=== PATIENT | male | born 1940 | race Caucasian/White ===

== ENCOUNTER 2020-07-25 19:39 | Inpatient (IN) | payer MEDICARE, MEDICAID, SELFPAY ==
[2020-07-25] VITALS (9 sets, daily range): BP systolic 97–130; BP diastolic 49–73; PULSE 81–92; RESP 18–30; TEMP 37.3; O2SAT 90–100; BMI 22.2
--- NOTE | 2020-07-25 19:59 | ECG_ITS ---
APPROVED REPORT Exam: Resting ECG HR:91 bpm ECG Measurements Heart Rate 91 AXES ID 172 P 29 QRSd 80 QRS -13 QT 364 T -13 QTc 447 Conclusion Normal sinus rhythm with sinus arrhythmia Normal ECG Electronically signed by : Jose Cool, 07/26/2020 16:52:35
--- NOTE | 2020-07-25 19:59 | XR_ITS ---
PROCEDURE: XR CHEST PORTABLE CLINICAL HISTORY: cough Pulmonary fibrosis COMPARISON: No exams were available for comparison FINDINGS: Mild cardiomegaly without failure. Pulmonary fibrotic changes are present. No definite lobar consolidation or collapse.. Cannot exclude infiltrate in the lung bases as there are no previous exams available for comparison. Degenerative changes of the shoulders with severe subacromial stenosis on the right IMPRESSION: Pulmonary fibrosis with mild cardiomegaly Dictated by: Ellis Perez MD 07/25/2020 22:59 Ellis Perez MD in [place] 07/25/2020 22:59
--- NOTE | 2020-07-25 20:02 | HMH.EDWEAK ---
ED Disposition Clinical Impression: Pulmonary fibrosis, SIRS (systemic inflammatory response syndrome), Renal insufficiency, Hx of traumatic brain injury CAP (community acquired pneumonia) Qualifiers: Laterality: left Lung location: lower lobe of lung Qualified Code(s): J18.9 - Pneumonia, unspecified organism Type 2 diabetes mellitus without complication Qualifiers: Diabetes mellitus terminal manager insulin use: unspecified assisted insulin use status Qualified Code(s): E11.9 - Type 2 diabetes mellitus without complications Disposition: Admitted as Observation Condition on Discharge: Fair Instructions: DI for Altered Mental Status Referrals: Eddi Cowan MD [Primary Care Provider] - - Critical Care Critical Care Time: No Attestation: On 07/25/20, the high probability of a clinically significant, sudden or life threatening deterioration of the following system(s) required my full and direct attention, intervention and personal management. The time I documented below is in addition to time spent performing reported procedures but includes the following listed in this critical care notation. Medical Decision Making - Medical Records Medical records reviewed: Yes: I reviewed the patient's medical records. - Jim Inquiry Pt receiving controlled substance: No Vital Signs: 07/25/20 19:39 07/25/20 20:16 07/25/20 20:39 Temperature 99.2 F Temperature Source Rectal Pulse Rate [Left Radial] 84 82 84 Respiratory Rate 30 H 18 Blood Pressure [Right Arm] 117/63 97/49 L 109/56 L Blood Pressure Mean [Right Arm] 81 65 73 Blood Pressure Source [Right Arm] Automatic Cuff Blood Pressure Position [Right Arm] Supine 02 Sat by Pulse Oximetry 92 L 95 100 Oxygen Delivery Method Room Air Oxygen Flow Rate (LPM) 07/25/20 21:00 07/25/20 21:33 07/25/20 22:00 Temperature Temperature Source Pulse Rate [Left Radial] 86 87 81 Respiratory Rate 26 H 18 18 Blood Pressure [Right Arm] 116/51 L 115/54 L 110/53 L Blood Pressure Mean [Right Arm] 72 74 72 Blood Pressure Source [Right Arm] Automatic Cuff Blood Pressure Position [Right Arm] Supine 02 Sat by Pulse Oximetry 90 L 97 99 Oxygen Delivery Method Room Air Nasal Cannula Nasal Cannula Oxygen Flow Rate (LPM) 2 2 07/25/20 22:30 07/25/20 23:00 Temperature Temperature Source Pulse Rate [Left Radial] 92 H 84 Respiratory Rate 18 24 Blood Pressure [Right Arm] 130/73 106/53 L Blood Pressure Mean [Right Arm] 92 70 Blood Pressure Source [Right Arm] Automatic Cuff Blood Pressure Position [Right Arm] Supine 02 Sat by Pulse Oximetry 99 95 Oxygen Delivery Method Nasal Cannula Nasal Cannula Oxygen Flow Rate (LPM) 2 2 - Lab Data Lab results reviewed: Yes: I reviewed the patient's lab results. Lab Results 07/25/20 18:35: WBC 20.1 H*, RBC 4.35 L, Hgb 12.2 L, Hct 38.0 L, MCV 87.5, MCH 28.1, MCHC 32.1, RDW 14.4, Plt Count 425 H, MPV 7.5, Neut % (Auto) 85.7 H, Lymph % (Auto) 9.8 L, [place] % (Auto) 3.8, Eos % (Auto) 0.4, Baso % (Auto) 0.2, Neut # (Auto) 17.2 H, Lymph # (Auto) 2.0, [place] # (Auto) 0.8, Eos # (Auto) 0.1, Baso # (Auto) 0.0, Total Counted 100, Neutrophils % (Manual) 86 H, Band Neutrophils % 6.0, Lymphocytes % (Manual) 8 L, Platelet Estimate Normal, RBC Morphology Normal 07/25/20 18:35: Sodium 142, Potassium 4.4, Chloride 104, Carbon Dioxide 27, Anion Gap 15.4 H, BUN 36 H, Creatinine 1.80 H, Estimated Creat Clear 34, Estimated GFR 37 L, Est GFR ( Amer) 44 L, Glucose 128 H, Calcium 9.5, Total Bilirubin 0.5, Direct Bilirubin 0.3, Conjugated Bilirubin 0.0, Indirect Bilirubin 0.2, Unconjugated Bilirubin 0.3, AST 45, ALT 43, Alkaline Phosphatase 136 H, Total Protein 8.5 H, Albumin 3.9, Procalcitonin 0.288 07/25/20 18:35: SARS-CoV-2 IgG Ab (Rapid) Negative, SARS-CoV-2 IgM Ab (Rapid) Negative 07/25/20 18:35: Total Valproic Acid 59.5 07/25/20 19:41: Urine Color Yellow, Urine Appearance Clear, Urine pH 6.0, Ur Specific [place] >= 1.030, Urine Protein 2+, Urine Glucose
[2020-07-25 20:14] LABS: Microscopic, Urine URINE MICROSCOPIC (MICROSCOPIC)
[2020-07-25 20:17] LABS: Basophils % 0.2 % (0.1-2.0); Eosinophils # 0.1 K/mm3 (0.0-0.4); Eosinophils % 0.4 % (0.1-12.0); Hemoglobin 12.2 g/dL (14.1-18.0); Lymphocytes % 9.8 % (10-50); Mean Corpuscular HGB Conc 32.1 g/dL (31.8-35.4); Mean Corpuscular Hemoglobin 28.1 pg (27.0-31.2); Mean Corpuscular Volume 87.5 fl (80-94); Mean Platelet Volume 7.5 fl (7.4-10.4); Monocytes # 0.8 K/mm3 (0.1-1.0); Monocytes % 3.8 % (1.7-9.3); Neutrophils # 17.2 K/mm3 (1.8-7.8); Neutrophils % 85.7 % (37.0-80.0); Platelet Count 425 K/mm3 (142-424); Red Blood Count 4.35 M/mm3 (4.60-6.20); Red Cell Distribution Width 14.4 % (11.5-17.5)
--- NOTE | 2020-07-25 20:18 | PC.NURSE ---
RT AT BEDSIDE
[2020-07-25 20:24] LABS: Alanine Aminotransferase 43 U/L (12-78); Albumin Level 3.9 g/dl (3.5-5.0); Alkaline Phosphatase 136 U/L (38-126); Anion Gap 15.4 mEq/L (5-15); Aspartate Amino Transferase 45 U/L (17-59); Bilirubin,Direct 0.3 mg/dl (0.0-0.4); Bilirubin,Indirect 0.2 mg/dL (0.0-0.9); Bilirubin,Total 0.5 mg/dl (0.2-1.3); Bilirubin,Unconjugated 0.3 mg/dL (0.0-1.1); Blood Urea Nitrogen 36 mg/dl (9-20); Calcium 9.5 mg/dl (8.4-10.2); Carbon Dioxide 27 mmol/L (22.0-30.0); Chloride 104 mmol/L (98-107); Creatinine Clearance Estimated 34 mL/min (50-200); Estimated Glomerular Filt Rate 37 ml/min (>60); GFR (African American) 44 ML/MIN (>60); Glucose 128 mg/dl (74-100); Potassium 4.4 mmoL/L (3.5-5.1); Sodium 142 mmol/L (136-145); Total Protein,Serum 8.5 g/dl (6.3-8.2)
[2020-07-25 20:26] LABS: MANUAL DIFFERENTIAL MANUAL DIFFERENTIAL (MANUAL DIFF); White Blood Count 20.1 K/mm3 (4.8-10.8)
[2020-07-25 20:28] LABS: Lactic Acid 1.3 mmol/L (0.7-2.1)
[2020-07-25 20:32] LABS: Appearance,Urine CLEAR (Clear); Bilirubin,Urine Negative (Negative); Blood, Urine 2+ (Negative); Color,Urine YELLOW (Yellow); Glucose,Urine (UA) Negative (Negative); Ketones,Urine TRACE (Negative); Leukocyte Esterase,Urine Negative (Negative); Nitrate,Urine Negative (Negative); Protein,Urine 2+ (Negative); Specific Gravity, Urine >= 1.030 (1.005-1.030); Urobilinogen,Urine 0.2 EU/dl (0.2)
[2020-07-25 20:35] LABS: Squamous Epithelial Cell,Urine Occasional #/hpf (0-5)
[2020-07-25 20:37] LABS: ABG HCO3 23.3 mmhg (22.0-26.0); ABG Oxygen Saturation 97 % (90-100); ABG PCO2 40.8 mmhg (35.0-45.0); ABG PH 7.37 mmol/L (7.35-7.45); ABG PO2 100.8 mmhg (80-100); ABG TCO2 24.5 mmhg (23-27)
[2020-07-25 20:38] LABS: Allen's Test Y; Oxygen 3 %; Source R/R
[2020-07-25 20:40] LABS: Coronavirus 19 IgG Antibody Negative (Negative); Coronavirus 19 IgM Antibody Negative (Negative)
[2020-07-25 20:41] LABS: Procalcitonin 0.288 ng/mL (0.0-2.0)
[2020-07-25 20:59] LABS: Lymphocytes % 8 % (10-50); Neutrophils % 86 % (42-76); Platelet Estimate Normal; RBC Morphology Normal; Total Cells Counted 100
[2020-07-25 22:59] LABS: Valproic Acid, (Depakene) 59.5 ug/ml (50-100)
--- NOTE | 2020-07-25 23:01 | PC.NURSE ---
SPOKE WITH JACEY MENDEZ, AND WAS TOLD IT WOULD BE 11 MINS
[2020-07-26] VITALS (16 sets, daily range): BP systolic 116–173; BP diastolic 55–87; PULSE 70–110; RESP 17–24; TEMP 36.3–37.2; O2SAT 93–98; BMI 21.4; BMI 21.7
[2020-07-26 00:20] LABS: Troponin I 0.01 ng/ml (0.00-0.034)
--- NOTE | 2020-07-26 00:28 | PC.NURSE ---
PT ARRIVED TO THE FLOOR VIA STRETCHER FROM ED W/STAFF AT 0028
--- NOTE | 2020-07-26 00:41 | PC.NURSE ---
Attempted to reach to obtain photo consent, no able to leave message do to voicemail not being set up
[2020-07-26 02:24] LABS: Troponin I 0.01 ng/ml (0.00-0.034)
--- NOTE | 2020-07-26 04:30 | PC.NURSE ---
pt alert to self. diminished on lt side. pt has been agitate at intervals. 20 LAC NS @ 50. bed alarm activated
[2020-07-26 04:44] LABS: Anion Gap 13.4 mEq/L (5-15); Blood Urea Nitrogen 37 mg/dl (9-20); Carbon Dioxide 25 mmol/L (22.0-30.0); Chloride 111 mmol/L (98-107); Creatinine Clearance Estimated 37 mL/min (50-200); Estimated Glomerular Filt Rate 42 ml/min (>60); GFR (African American) 51 ML/MIN (>60); Glucose 104 mg/dl (74-100); Magnesium 1.3 mg/dl (1.6-2.3); Potassium 5.4 mmoL/L (3.5-5.1); Sodium 144 mmol/L (136-145)
[2020-07-26 04:58] LABS: Troponin I < 0.01 ng/ml (0.00-0.034)
[2020-07-26 05:00] LABS: Basophils % 0.2 % (0.1-2.0); Eosinophils # 0.2 K/mm3 (0.0-0.4); Eosinophils % 1.4 % (0.1-12.0); Hematocrit 36.2 % (42.0-52.0); Hemoglobin 11.6 g/dL (14.1-18.0); Lymphocytes # 1.8 K/mm3 (0.7-4.5); Lymphocytes % 13.2 % (10-50); Mean Corpuscular Hemoglobin 28.2 pg (27.0-31.2); Mean Corpuscular Volume 88.2 fl (80-94); Monocytes # 0.6 K/mm3 (0.1-1.0); Monocytes % 4.7 % (1.7-9.3); Neutrophils % 80.5 % (37.0-80.0); Platelet Count 267 K/mm3 (142-424); Red Blood Count 4.11 M/mm3 (4.60-6.20); Red Cell Distribution Width 14.3 % (11.5-17.5); White Blood Count 13.6 K/mm3 (4.8-10.8)
[2020-07-26 05:29] LABS: POC Glucose,Bedside 93 (70-110)
--- NOTE | 2020-07-26 10:06 | HMH.HP ---
*Admission Date: 07/26/20 *Chief complaint: sob *History of present illness: this pr was sent from [facility] for congestion and altered mental status -from [facility] - pt with dec po intake - no other hx at this time [facility] History I have reviewed the patient's past medical history: Yes Medical History: Reports:: BPH, Diabetes Mellitus Type 2, Hypertension, Seizures Denies:: Cancer, Diabetes Mellitus Type 1, Internal Pacemaker, MRSA *Have you ever received a pneumonia vaccine?: No *Have you received a flu vaccine this season?: No Other Medical History: Reports: Other Other Surgeries: No: Pacemaker Amputation: No Fractures: Yes - *Social History Smoking Status: Never smoker Alcohol Intake: never *Occupational Status:: retired Housing: [facility]dc Household Members: other *Travel in the last 8 weeks: None Family Hx:: Unable to obtain Review of Systems - Review of Systems Review of systems:: pertinent systems reviewed and negative unless documented below - *Cardiovascular Denies chest pain at rest - *Respiratory Reports cough, Reports shortness of breath - *Neurologic Reports weakness, Denies localized weakness, Denies headache(s), Denies seizure-like activity Meds Home Medications Medication Instructions Recorded Confirmed Type bisacodyl 5 mg tablet 10 mg PO BID 09/03/19 07/26/20 History cholecalciferol (vitamin D3) 100 5,000 unit PO DAILY 09/03/19 07/26/20 History mcg (4,000 unit) capsule ibuprofen 600 mg tablet 600 mg PO Q6HP PRN 09/03/19 07/26/20 History lisinopril 10 mg tablet 10 mg PO DAILY 09/03/19 07/26/20 History ondansetron HCl 4 mg tablet 4 mg PO Q8HP PRN 09/03/19 07/26/20 History sennosides 8.6 mg-docusate sodium 1 tab PO BID 09/03/19 07/26/20 History 50 mg tablet tamsulosin 0.4 mg capsule 0.4 mg PO DAILY 09/03/19 07/26/20 History metformin 500 mg tablet 500 mg PO BID 11/04/19 07/26/20 History ARIPiprazole [Abilify 10mg 10 mg PO HS 07/25/20 07/26/20 History Tablet] Aspirin [Aspirin 81mg chewable 81 mg PO DAILY 07/25/20 07/26/20 History tab] Divalproex Sodium [Depakote ER] 500 mg PO DAILY 07/25/20 07/26/20 History Donepezil HCl [Aricept 5mg 10 mg PO HS 07/25/20 07/26/20 History Tablet] Pantoprazole Sodium [Protonix 40mg 40 mg PO DAILY 07/25/20 07/26/20 History tablet] Sertraline HCl [Zoloft] 150 mg PO DAILY 07/25/20 07/26/20 History levETIRAcetam [Levetiracetam] 500 mg PO HS 07/25/20 07/26/20 History Acetaminophen 500 mg PO Q4HP PRN 07/26/20 07/26/20 History Bisacodyl [Bisacodyl 10mg Supp] 10 mg RC Q12HP PRN 07/26/20 07/26/20 History Bismuth Subsalicylate [Bismuth] 2 tab PO Q2HP PRN 07/26/20 07/26/20 History Divalproex Sodium [Depakote 250mg 750 mg PO 1700 07/26/20 07/26/20 History (Delayed-Release) tablet] Melatonin 9 mg PO HS 07/26/20 07/26/20 History Mirtazapine [Remeron 15mg tablet] 15 mg PO HS 07/26/20 07/26/20 History Multivitamin 1 each PO DAILY 07/26/20 07/26/20 History polyethylene glycoL 3350 [Miralax 17 gm PO DAILYP PRN 07/26/20 07/26/20 History 17gm Packet] Allergies Allergy/AdvReac Type Severity Reaction Status Date / Time Sulfa (Sulfonamide Allergy Verified 05/31/20 13:20 Antibiotics) Exam Vital signs and Labs for Last 24 Hours: Temp Pulse Resp BP Pulse Ox 97.8 F 101 H 20 173/87 H 98 07/26/20 08:00 07/26/20 08:00 07/26/20 08:00 07/26/20 08:00 07/26/20 08:00 Laboratory Results - last 24 hr 07/25/20 18:35: WBC 20.1 H*, RBC 4.35 L, Hgb 12.2 L, Hct 38.0 L, MCV 87.5, MCH 28.1, MCHC 32.1, RDW 14.4, Plt Count 425 H, MPV 7.5, Neut % (Auto) 85.7 H, Lymph % (Auto) 9.8 L, [place] % (Auto) 3.8, Eos % (Auto) 0.4, Baso % (Auto) 0.2, Neut # (Auto) 17.2 H, Lymph # (Auto) 2.0, [place] # (Auto) 0.8, Eos # (Auto) 0.1, Baso # (Auto) 0.0, Total Counted 100, Neutrophils % (Manual) 86 H, Band Neutrophils % 6.0, Lymphocytes % (Manual) 8 L, Platelet Estimate Normal, RBC Morphology Normal 07/25/20 18:35: Sodium 142, Potassium 4.4, Chloride 104, Carbo
--- NOTE | 2020-07-26 10:09 | CT_ITS ---
PROCEDURE: CT CHEST WO CON Referring Doctor: Eddi Cowan CLINICAL INDICATION: Short of breath. Abnormal CXR. Altered mental status. Provides no history COMPARISON: Portable chest CXR 07/25/2020 TECHNIQUE: Helical CT scanning performed through chest with no IV contrast utilized / Axial images obtained with sagittal and coronal reformats. All CT scans at the facility use one or more dose reduction, viz: automated exposure control, ma/kV adjustment per patient size (including targeted exams where dose is matched to indication, i.e. head), or iterative reconstruction technique FINDINGS: compared to yesterday's pCXR Appears to be improved aeration at left lung base and LLL as the left hemidiaphragm canal be delineated better on the CT computer help desk specialist view today. However there has been significant increased in progression right basilar/right lower lobe infiltrate which is developed and progressed since the yesterday P CXR. In addition to the diffuse left lower lobe infiltrate would note more focal denser area of infiltrate/consolidation at posterior medial periphery of the superior segment left lower lobe,. (, As seen on axial image 42-45, and sagittal image 58-53) At right lung similar but less pronounced focal infiltrate posterior aspect superior segment right lower lobe.. (Axial image 44-48 ) Also note subtle minimal infiltrate of some along with some fibrotic scarring at the anterior aspect of the left upper lobe (axial 44, sagittal 27-34) Also minimal wispy infiltrate left upper lobe (axial image 31, coronal 43, 44) PLEURAL SPACES: No significant effusion. No evidence of pneumothorax HEART: Heart mildly enlarged. Coronary calcification most evident at LAD with possible stent. Requires correlation with history. Mitral valve annulus calcification.. no significant pericardial effusion. Seems to be slight lobulated questionable mild bulging appearance at the cardiac apex. Questionable significance but you may want to consider an echocardiogram in the workup particular if there has been a previous MS . MEDIASTINAL AND HILAR STRUCTURES: Scattered small-moderate mediastinal nodes. No dominant suspicious mediastinal or hilar mass or adenopathy.. Right paratracheal node 15 mm x 10 mm 19 mm grouping of nodes precarinal region noted likely due to 2 adjacent nodes PULMONARY ARTERIES: Lack of IV contrast limits evaluation AORTA: No acute finding. No thoracic aortic aneurysm. Minimal atherosclerotic calcification aortic arch and descending aorta . BONY STRUCTURES: No acute bony abnormalities apparent.. Ankylosis and degenerative changes throughout the spine. DISH appearance noted at lower C-spine.. Kyphosis upper T-spine LYMPH NODES: No enlarged lymph nodes evident. UPPER ABDOMEN: Unremarkable. ADDITIONAL FINDINGS: No other significant abnormalities. Cholecystectomy IMPRESSION: Progression of bilateral pneumonic infiltrates -most pronounced and diffuse diffuse throughout lower lobes bilaterally.. Superimposed upon mild background chronic lung changes and mild chronic fibrotic changes When compared to yesterday's portable CXR there has been interval development and significant progression diffuse right lower lobe/right lower lobe pneumonia. Also when compared to yesterday's CXR the left basilar airspace disease has shown perhaps slight improved aeration but with more diffuse infiltrate now throughout the left lower lobe/left lung Dictated by: Ant Landin MD 07/26/2020 15:37 Ant Landin MD in [place] 07/26/2020 15:37
[2020-07-26 11:34] LABS: POC Glucose,Bedside 110 (70-110)
--- NOTE | 2020-07-26 13:59 | PC.NURSE ---
PATIENT CONTINUES TO COUGH AND CHOKE WITH SIPS AND BITES. THIS RN PHONED DR. FARRELL, ORDERS FOR NPO AND SWALLOW EVAL. PATIETN HAS BECOME MORE ALERT THIS FAR. PATIENT IS ABLE TO TELL THIS RN HIS NAME AND BIRTHDAY. NO OTHER NEW CONCERNS AT THIS TIME.
--- NOTE | 2020-07-26 14:47 | HMH.PHAVTE ---
[facility] Pharmacy VTE Monitoring - Patient Demographics Admission date: 07/26/20 Report Date: 07/26/20 Time: 14:47 Allergies/Adverse Reactions: Patient Allergies Sulfa (Sulfonamide Antibiotics) Allergy (Verified 05/31/20 13:20) Height: 1.78 m Weight: 68.765 kg Patient Problems: Current Active Problems CAP (community acquired pneumonia) (Acute) SIRS (systemic inflammatory response syndrome) (Acute) Renal insufficiency (Acute) Pulmonary fibrosis (Chronic) Type 2 diabetes mellitus without complication (Chronic) Hx of traumatic brain injury (Chronic) - VTE Risk Labs: VTE Related Lab Results Hgb 11.6 g/dL (14.1-18.0) L 07/26/20 04:15 Hct 36.2 % (42.0-52.0) L 07/26/20 04:15 Plt Count 267 K/mm3 (142-424) D 07/26/20 04:15 BUN 37 mg/dl (9-20) H 07/26/20 04:15 Creatinine 1.60 mg/dl (0.66-1.25) H 07/26/20 04:15 Estimated Creat Clear 37 mL/min (50-200) 07/26/20 04:15 VTE Score: 3 VTE Risk Level: Low Risk - Prophylaxis VTE Prophylaxis Ordered?: Yes Types of VTE Prophylaxis: TEDS Knee High Location of Applied Device: Bilateral Lower Extremeties
--- NOTE | 2020-07-26 16:04 | PC.NURSE ---
photo taken by raul irizarry rn. skin tear measures about 1in wide by 2in long. no drainage noted. surrounded by red and pink tissue.
[2020-07-26 16:20] LABS: POC Glucose,Bedside 110 (70-110)
[2020-07-27] VITALS (13 sets, daily range): BP systolic 124–145; BP diastolic 61–81; PULSE 66–92; RESP 18–30; TEMP 36.2–36.8; O2SAT 94–99; BMI 21.4
[2020-07-27 01:32] LABS: POC Glucose,Bedside 104 (70-110)
--- NOTE | 2020-07-27 05:38 | PC.NURSE ---
at this time, notified Dr Cowan, through ER nurse Ita Ellis, that starting at approx 0535 the patient has been in and out of Afib and aflutter, he will then convert spontaneously to sinus milo with a rate of 40's-50's. When in afib/aflutter rate has been controlled. Looking at patient records and medication in system, pt does not have a history of afib/aflutter nor is he on any medications for afib aflutter. No new orders or changes at this time.
[2020-07-27 05:55] LABS: POC Glucose,Bedside 78 (70-110)
[2020-07-27 06:15] LABS: Basophils % 0.2 % (0.1-2.0); Eosinophils # 0.1 K/mm3 (0.0-0.4); Eosinophils % 1.2 % (0.1-12.0); Hematocrit 34.6 % (42.0-52.0); Hemoglobin 11.2 g/dL (14.1-18.0); Lymphocytes # 1.4 K/mm3 (0.7-4.5); Lymphocytes % 11.2 % (10-50); Mean Corpuscular HGB Conc 32.4 g/dL (31.8-35.4); Mean Corpuscular Hemoglobin 28.3 pg (27.0-31.2); Mean Corpuscular Volume 87.4 fl (80-94); Mean Platelet Volume 8.3 fl (7.4-10.4); Monocytes # 0.6 K/mm3 (0.1-1.0); Neutrophils # 10.1 K/mm3 (1.8-7.8); Neutrophils % 82.5 % (37.0-80.0); Platelet Count 342 K/mm3 (142-424); Red Blood Count 3.96 M/mm3 (4.60-6.20); Red Cell Distribution Width 14.3 % (11.5-17.5); White Blood Count 12.2 K/mm3 (4.8-10.8)
[2020-07-27 06:18] LABS: Chloride 106 mmol/L (98-107)
[2020-07-27 06:19] LABS: Potassium 3.8 mmoL/L (3.5-5.1); Sodium 142 mmol/L (136-145)
[2020-07-27 06:21] LABS: Blood Urea Nitrogen 21 mg/dl (9-20); Creatinine Clearance Estimated 59 mL/min (50-200); Estimated Glomerular Filt Rate 93 ml/min (>60); GFR (African American) 113 ML/MIN (>60)
[2020-07-27 06:22] LABS: Anion Gap 13.8 mEq/L (5-15); Carbon Dioxide 26 mmol/L (22.0-30.0); Glucose 80 mg/dl (74-100)
--- NOTE | 2020-07-27 08:10 | PC.NURSE ---
Patient has rested well this shift. He was turned Q2h to prevent further skin breakdown. Pt had 1 bm at the beginning of the shift. pt is alert to self. When asked his name stated it was brittany when asked if thats what he wanted to be called , he said yes, but i dont want to be no friends! Pt has expressed frustrations at being NPO by cursing at the staff. pt lung sounds contain rhonchi in ru anterior lob. crackles remain in josie bases. bowel sounds are active in all quads. nad noted.
--- NOTE | 2020-07-27 09:12 | HMH.ACPN2 ---
Internal Medicine - PN: Subj *Date: 07/27/20 *Time: 09:12 Interval history: pt laying in bed Exam Vital signs and Labs for Last 24 Hours: Temp Pulse Resp BP Pulse Ox 98.2 F 79 22 145/81 H 97 07/27/20 08:00 07/27/20 08:00 07/27/20 08:00 07/27/20 08:00 07/27/20 08:00 Laboratory Results - last 24 hr 07/26/20 11:21: POC Glucose 110 07/26/20 16:12: POC Glucose 110 07/26/20 20:33: POC Glucose 104 07/27/20 05:25: WBC 12.2 H, RBC 3.96 L, Hgb 11.2 L, Hct 34.6 L, MCV 87.4, MCH 28.3, MCHC 32.4, RDW 14.3, Plt Count 342 D, MPV 8.3, Neut % (Auto) 82.5 H, Lymph % (Auto) 11.2, [place] % (Auto) 5.0, Eos % (Auto) 1.2, Baso % (Auto) 0.2, Neut # (Auto) 10.1 H, Lymph # (Auto) 1.4, [place] # (Auto) 0.6, Eos # (Auto) 0.1, Baso # (Auto) 0.0 07/27/20 05:25: Sodium 142, Potassium 3.8 D, Chloride 106, Carbon Dioxide 26, Anion Gap 13.8, BUN 21 H D, Creatinine 0.80 D, Estimated Creat Clear 59, Estimated GFR 93, Est GFR ( Amer) 113 D, Glucose 80, Calcium 9.0 07/27/20 05:48: POC Glucose 78 I & O for Last 24 hours: Intake & Output 07/24/20 07/25/20 07/26/20 07/27/20 11:59 11:59 11:59 11:59 Intake Total 498 / 498 0 / 0 Output Total 1300 / 1300 Balance 498 / 498 -1300 / -1300 Weight 151 lb 9.6 oz 149 lb 9 oz Microbiology Reports for the Last 24 Hours: Microbiology 07/26/20 00:01 Sputum - Expectorated Sputum Gram Stain - Final 07/26/20 00:01 Sputum - Expectorated Sputum Sputum Culture - Preliminary - Constitutional no acute distress, thin - *Routine HEENT Exam Head: Present: normocephalic Eye: Present: PERRL ENT: Present: mucous membranes moist - *Routine Neck Exam Present: supple. Absent: lymphadenopathy - *Routine Respiratory Exam Present: rhonchi, wheezes, diminished air movement - *Routine Cardiovascular Exam Present: RRR - *Routine Abdominal Exam Present: soft, normoactive bowel sounds. Absent: tenderness - *Routine Extremities Exam Present: normal capillary refill. Absent: cyanosis, clubbing, edema - *Routine Skin Exam Present: warm. Absent: rash - *Routine Neurological Exam Present: alert, oriented X3 - Routine Psychiatric Exam Present: unable to assess Assessment and Plan (1) CAP (community acquired pneumonia) Status: Acute Qualifiers: Laterality: left Lung location: lower lobe of lung Qualified Code(s): J18.9 - Pneumonia, unspecified organism Category: Medical Code(s): J18.9 - Pneumonia, unspecified organism (2) SIRS (systemic inflammatory response syndrome) Status: Acute Category: Medical Code(s): R65.10 - Systemic inflammatory response syndrome (SIRS) of non-infectious origin without acute organ dysfunction (3) Renal insufficiency Status: Acute Category: Medical Code(s): N28.9 - Disorder of kidney and ureter, unspecified (4) Pulmonary fibrosis Status: Chronic Category: Medical Code(s): J84.10 - Pulmonary fibrosis, unspecified (5) Hypomagnesemia Status: Acute Category: Medical Code(s): E83.42 - Hypomagnesemia (6) Type 2 diabetes mellitus without complication Status: Chronic Qualifiers: Diabetes mellitus penitentiary insulin use: unspecified penitentiary insulin use status Qualified Code(s): E11.9 - Type 2 diabetes mellitus without complications Category: Medical Code(s): E11.9 - Type 2 diabetes mellitus without complications (7) Dysphagia Status: Chronic Qualifiers: Dysphagia type: unspecified Qualified Code(s): R13.10 - Dysphagia, unspecified Category: Medical Code(s): R13.10 - Dysphagia, unspecified - Assessment and plan all Dx Assessment and Plan for all problems:: rounded with dr roberts all orders per dr roberts have pulm see pt speech eval for aspiration
--- NOTE | 2020-07-27 09:45 | HMH.PULMCON ---
*Admission Date: 07/26/20 *Reason for consult:: Acute hypoxic respiratory failure, pneumonia *History of present illness: Mr. Gomez is a 80-year-old male previous smoker more than [id number] smoking history currently not smoking and nebulization therapy nocturnally every day not on any home oxygen presented to the hospital with worsening respiratory failure and decreased p.o. intake. Imaging showed bilateral pulmonary infiltrates and pulmonary was called for further management. [facility] History Medical History: Reports:: BPH, Diabetes Mellitus Type 2, Hypertension, Seizures Denies:: Cancer, Diabetes Mellitus Type 1, Internal Pacemaker, MRSA *Have you ever received a pneumonia vaccine?: No *Have you received a flu vaccine this season?: No Other Medical History: Reports: Other Other Surgeries: No: Pacemaker Amputation: No Fractures: Yes - *Social History Smoking Status: Never smoker Alcohol Intake: never *Occupational Status:: retired Housing: care home Household Members: other *Travel in the last 8 weeks: None Family Hx:: Unable to obtain ROS - Cons Reports anorexia, Reports body ache(s), Reports chills - ENT Reports abnormal hearing - Card Reports shortness of breath, Reports shortness of breath with activity - Resp Respiratory: Yes chest congestion, Yes cough, Yes excessive phlegm production - GI Gastrointestingal: Reports: system reviewed and no additional complaints, except as docu - [place] Musculoskeletal: Reports system reviewed and no additional complaints, except as docu Meds Home Medications Medication Instructions Recorded Confirmed Type bisacodyl 5 mg tablet 10 mg PO BID 09/03/19 07/26/20 History cholecalciferol (vitamin D3) 100 5,000 unit PO DAILY 09/03/19 07/26/20 History mcg (4,000 unit) capsule ibuprofen 600 mg tablet 600 mg PO Q6HP PRN 09/03/19 07/26/20 History lisinopril 10 mg tablet 10 mg PO DAILY 09/03/19 07/26/20 History ondansetron HCl 4 mg tablet 4 mg PO Q8HP PRN 09/03/19 07/26/20 History sennosides 8.6 mg-docusate sodium 1 tab PO BID 09/03/19 07/26/20 History 50 mg tablet tamsulosin 0.4 mg capsule 0.4 mg PO DAILY 09/03/19 07/26/20 History metformin 500 mg tablet 500 mg PO BID 11/04/19 07/26/20 History ARIPiprazole [Abilify 10mg 10 mg PO HS 07/25/20 07/26/20 History Tablet] Aspirin [Aspirin 81mg chewable 81 mg PO DAILY 07/25/20 07/26/20 History tab] Divalproex Sodium [Depakote ER] 500 mg PO DAILY 07/25/20 07/26/20 History Donepezil HCl [Aricept 5mg 10 mg PO HS 07/25/20 07/26/20 History Tablet] Pantoprazole Sodium [Protonix 40mg 40 mg PO DAILY 07/25/20 07/26/20 History tablet] Sertraline HCl [Zoloft] 150 mg PO DAILY 07/25/20 07/26/20 History levETIRAcetam [Levetiracetam] 500 mg PO HS 07/25/20 07/26/20 History Acetaminophen 500 mg PO Q4HP PRN 07/26/20 07/26/20 History Bisacodyl [Bisacodyl 10mg Supp] 10 mg RC Q12HP PRN 07/26/20 07/26/20 History Bismuth Subsalicylate [Bismuth] 2 tab PO Q2HP PRN 07/26/20 07/26/20 History Divalproex Sodium [Depakote 250mg 750 mg PO 1700 07/26/20 07/26/20 History (Delayed-Release) tablet] Melatonin 9 mg PO HS 07/26/20 07/26/20 History Mirtazapine [Remeron 15mg tablet] 15 mg PO HS 07/26/20 07/26/20 History Multivitamin 1 each PO DAILY 07/26/20 07/26/20 History polyethylene glycoL 3350 [Miralax 17 gm PO DAILYP PRN 07/26/20 07/26/20 History 17gm Packet] Allergies Allergy/AdvReac Type Severity Reaction Status Date / Time Sulfa (Sulfonamide Allergy Verified 05/31/20 13:20 Antibiotics) Exam Radiology reports for Last 24 Hours: CT chest on admission bilateral pulmonary less prominently lower lobes with chronic changes likely from recurrent aspiration pneumonia. However underlying interstitial lung disease cannot be completely ruled out - Constitutional Constitutional:: comfortable - HENME Exam HENME: normocephalic, atraumatic - Eye Exam Eyes:: normal appearance both eyes and related struc
--- NOTE | 2020-07-27 10:55 | HMH.SLDYSPHA ---
Speech & Language Evaluation Speech/Language Dysphagia Evaluation Start: 07/27/20 10:48 Freq: ONCE Status: Active Protocol: Document 07/27/20 10:48 [email or web address] (Rec: 07/27/20 10:55 [email or web address] [id number]) Dysphagia Assess/Goals/Plan Assessment Date of Evaluation: 07/27/20 Evaluation Type Initial Certification Assessment/Problems dysphagia Does Patient Qualify for Service No Qualify/Failure Comment Diet modifications made. Patient unable to follow simple directions due to AMS. Recommendations PHYSICIAN CERTIFICATION: The specified therapy services are required, authorized, and reviewed every 30 days. Diet Recommendations Mechanical Soft Liquid Type Recommendations [place] Consistency SL Swallow Guidelines Assist w/all meals,Standard Aspiration Prec. Dysphagia Swallow Precautions/Strategies Sitting Upright (90 deg),Small Bites and Sips,Alternate Liquids/Solids Plan Pt/Guardian verbally ack understanding Yes: RN and CM notified of dx/prognosis/goals G -code Required No General Information General Current Food Consistancy NPO Dentition Good Dentition Oxygen Status Nasal Cannula Facial Symmetry Symmetrical Patient Orientation Person,Place Ability to Follow Directions Fair Dysphagia:Food Presentation Evaluation Food Type Pureed,Mechanical Soft,Liquid, Pudding Normal/Thin Liquid Response Multiple swallow attempts, Coughing after swallow,Wet voice,Excessive saliva/mucous Dysphagia Evaluation Summary Mr. Gomez was given the following consistencies: thins via spoon, nectar via spoon and open cup, pudding, pureed, and mechanical soft. The following signs of dysphagia were noted during evaluation: multiple (hard) swallows per bolus, coughing after the swallow, excessive saliva all with thins. He required suctioning after thins. At this time, the least restrictive diet is a mechanical soft diet with ground meats with sauce/gravy with nectar thick liquids. Due to altered mental status, it makes th
[2020-07-27 11:23] LABS: POC Glucose,Bedside 81 (70-110)
--- NOTE | 2020-07-27 11:32 | SW/DCPLANNER ---
Addendum entered by Jacquelyn Marcano 07/31/20 12:37: NEGATIVE COVID results and discharge summary has been faxed to [facility]. Patient will discharge later today. Addendum entered by aJcquelyn Marcano 07/31/20 10:18: Melania from [facility] has stated that she can accept this patient back today with IV Vanc and IV meropenem and PEG tube once he has a negative COVID result. COVID test has been ordered. I will follow up with Melania once COVID results are back. Patient will discharge later today. Addendum entered by Jacquelyn Marcano 07/30/20 11:01: I have spoke with Melania from [facility] regarding patients status: PEG tube placement yesterday and will see how he tolerates feedings today, I have explained the need for IV antibiotics and stated that patient could return with either Zyvox PO or VANC IV and Melania has stated that she will call me back regarding this options, Melania has stated a PICC line is fine and I have also informed Melania that this patient is ESBL/MRSA positive. Melania will call me back regarding IV vs PO medications. I have also informed Melania depending on how patient tolerates tubefeedings he may be able for discharge tomorrow. Addendum entered by Jacquelyn Marcano 07/28/20 09:52: Updated patient information has been faxed to Melania at [facility]. Patient is not ready for discharge at this time. Addendum entered by Jacquelyn Marcano 07/27/20 14:13: Melania from [facility] has stated that this patient will need a new prior auth prior to returning to [facility]. I have informed Melania that patient is currently not ready for discharge at this time. Addendum entered by Jacquelyn Marcano 07/27/20 11:42: Updated patient information has been faxed to Melania at [facility]. Original Note: This patient currently resides at [facility]. I have spoke with Melania at [facility] regarding this patient and she has stated that patient is SNF level of care. I will continue to follow up with Melania until patient is medically stable for discharge.
--- NOTE | 2020-07-27 14:13 | HMH.PHACONS ---
- Pharmacy Consult Date: 07/27/20 Time: 14:13 Referring provider: DR. ALEMAN Reason for Consult:: BASED ON PATIENT FACTORS, RECOMMEND INITIATING VANCOMYCIN AT 1,250MG IV EVERY 18 HOURS. PHARMACY WILL MONITOR AND ADJUST DOSE APPROPRIATE. -YANY COTO PHARMD Allergies and ADEs:: Allergies Allergy/AdvReac Type Severity Reaction Status Date / Time Sulfa (Sulfonamide Allergy Verified 05/31/20 13:20 Antibiotics) Home Medications:: Home Medications Medication Instructions Recorded Confirmed Type bisacodyl 5 mg tablet 10 mg PO BID 09/03/19 07/26/20 History cholecalciferol (vitamin D3) 100 5,000 unit PO DAILY 09/03/19 07/26/20 History mcg (4,000 unit) capsule ibuprofen 600 mg tablet 600 mg PO Q6HP PRN 09/03/19 07/26/20 History lisinopril 10 mg tablet 10 mg PO DAILY 09/03/19 07/26/20 History ondansetron HCl 4 mg tablet 4 mg PO Q8HP PRN 09/03/19 07/26/20 History sennosides 8.6 mg-docusate sodium 1 tab PO BID 09/03/19 07/26/20 History 50 mg tablet tamsulosin 0.4 mg capsule 0.4 mg PO DAILY 09/03/19 07/26/20 History metformin 500 mg tablet 500 mg PO BID 11/04/19 07/26/20 History ARIPiprazole [Abilify 10mg 10 mg PO HS 07/25/20 07/26/20 History Tablet] Aspirin [Aspirin 81mg chewable 81 mg PO DAILY 07/25/20 07/26/20 History tab] Divalproex Sodium [Depakote ER] 500 mg PO DAILY 07/25/20 07/26/20 History Donepezil HCl [Aricept 5mg 10 mg PO HS 07/25/20 07/26/20 History Tablet] Pantoprazole Sodium [Protonix 40mg 40 mg PO DAILY 07/25/20 07/26/20 History tablet] Sertraline HCl [Zoloft] 150 mg PO DAILY 07/25/20 07/26/20 History levETIRAcetam [Levetiracetam] 500 mg PO HS 07/25/20 07/26/20 History Acetaminophen 500 mg PO Q4HP PRN 07/26/20 07/26/20 History Bisacodyl [Bisacodyl 10mg Supp] 10 mg RC Q12HP PRN 07/26/20 07/26/20 History Bismuth Subsalicylate [Bismuth] 2 tab PO Q2HP PRN 07/26/20 07/26/20 History Divalproex Sodium [Depakote 250mg 750 mg PO 1700 07/26/20 07/26/20 History (Delayed-Release) tablet] Melatonin 9 mg PO HS 07/26/20 07/26/20 History Mirtazapine [Remeron 15mg tablet] 15 mg PO HS 07/26/20 07/26/20 History Multivitamin 1 each PO DAILY 07/26/20 07/26/20 History polyethylene glycoL 3350 [Miralax 17 gm PO DAILYP PRN 07/26/20 07/26/20 History 17gm Packet] Height: 1.78 m Weight: 67.84 kg Laboratory Results:: Laboratory Results - last 24 hr 07/26/20 16:12: POC Glucose 110 07/26/20 20:33: POC Glucose 104 07/27/20 05:25: WBC 12.2 H, RBC 3.96 L, Hgb 11.2 L, Hct 34.6 L, MCV 87.4, MCH 28.3, MCHC 32.4, RDW 14.3, Plt Count 342 D, MPV 8.3, Neut % (Auto) 82.5 H, Lymph % (Auto) 11.2, [place] % (Auto) 5.0, Eos % (Auto) 1.2, Baso % (Auto) 0.2, Neut # (Auto) 10.1 H, Lymph # (Auto) 1.4, [place] # (Auto) 0.6, Eos # (Auto) 0.1, Baso # (Auto) 0.0 07/27/20 05:25: Sodium 142, Potassium 3.8 D, Chloride 106, Carbon Dioxide 26, Anion Gap 13.8, BUN 21 H D, Creatinine 0.80 D, Estimated Creat Clear 59, Estimated GFR 93, Est GFR ( Amer) 113 D, Glucose 80, Calcium 9.0 07/27/20 05:48: POC Glucose 78 07/27/20 11:13: POC Glucose 81 Medical History: Reports:: BPH, Diabetes Mellitus Type 2, Hypertension, Seizures Denies:: Cancer, Diabetes Mellitus Type 1, Internal Pacemaker, MRSA Assessment and Plan (1) CAP (community acquired pneumonia) Status: Acute Qualifiers: Laterality: left Lung location: lower lobe of lung Qualified Code(s): J18.9 - Pneumonia, unspecified organism Category: Medical Code(s): J18.9 - Pneumonia, unspecified organism (2) SIRS (systemic inflammatory response syndrome) Status: Acute Category: Medical Code(s): R65.10 - Systemic inflammatory response syndrome (SIRS) of non-infectious origin without acute organ dysfunction (3) Renal insufficiency Status: Acute Category: Medical Code(s): N28.9 - Disorder of kidney and ureter, unspecified (4) Pulmonary fibrosis Status: Chronic Category: Medical Code(s): J84.10 - Pulmonary fibrosis, unspecified
[2020-07-27 16:27] LABS: POC Glucose,Bedside 129 (70-110)
--- NOTE | 2020-07-27 18:10 | PC.NURSE ---
Addendum entered by Ita Cadena RN 07/27/20 18:59: Correction: patient on nectar thick liquid diet Original Note: Patient is resting comfortably in bed. Has been pleasant for the majority of the day. Is alert to person and is aware that he is in a healthcare facility but is unsure of which hospital, city, month and year. Patient animal nutrition teacher are equal, ronchi noted in lung quadrants, remains on room air with nebulizer treatments added to plan of care.. Patients diet was advanced today from npo to pudding thick liquids, patient is reluctant to drink or eat anything on his diet, had a bowel movement today. Patients blood glucose levels were within range today. Mike catheter in place, urine output is adequate. Patient has been a q2 turn. Decubitus ulcer stage 1 noted on saccrum, mepelex applied. Patients called for update today and stated she would be in tomorrow to visit with . He continues on antibiotic therapy. No issues or concerns.
[2020-07-27 20:41] LABS: POC Glucose,Bedside 106 (70-110)
[2020-07-28] VITALS (10 sets, daily range): BP systolic 121–148; BP diastolic 59–74; PULSE 60–91; RESP 16–20; TEMP 36.5–36.9; O2SAT 92–98; BMI 21.5
--- NOTE | 2020-07-28 03:50 | PC.NURSE ---
No acute changes this shift. Pt is alert to self. Thinks he is in a hotel. Has slept at intervals this shift. Remains on O2 2L NC. Rhonchi noted to anterior upper lobes. Pt has productive cough. Oral Suctioning x1 this shift. VS remain stable. Remains on 2L NC. F/C draining to bedside with clear, yellow urine. Small BM this shift. Pt turned/repositioned. Mediccations per mar. Call light within reach. Safety measures in place.
[2020-07-28 06:06] LABS: Chloride 106 mmol/L (98-107); Potassium 3.8 mmoL/L (3.5-5.1); Sodium 142 mmol/L (136-145)
[2020-07-28 06:07] LABS: Basophils % 0.3 % (0.1-2.0); Eosinophils # 0.2 K/mm3 (0.0-0.4); Hematocrit 31.9 % (42.0-52.0); Hemoglobin 10.6 g/dL (14.1-18.0); Lymphocytes # 1.3 K/mm3 (0.7-4.5); Lymphocytes % 11.5 % (10-50); Mean Corpuscular HGB Conc 33.2 g/dL (31.8-35.4); Mean Corpuscular Hemoglobin 28.6 pg (27.0-31.2); Mean Platelet Volume 8.1 fl (7.4-10.4); Monocytes # 0.6 K/mm3 (0.1-1.0); Monocytes % 5.2 % (1.7-9.3); Neutrophils # 9.3 K/mm3 (1.8-7.8); Neutrophils % 81.1 % (37.0-80.0); Platelet Count 339 K/mm3 (142-424); Red Blood Count 3.71 M/mm3 (4.60-6.20); Red Cell Distribution Width 14.4 % (11.5-17.5); White Blood Count 11.4 K/mm3 (4.8-10.8)
[2020-07-28 06:09] LABS: Anion Gap 11.8 mEq/L (5-15); Blood Urea Nitrogen 15 mg/dl (9-20); Calcium 8.6 mg/dl (8.4-10.2); Carbon Dioxide 28 mmol/L (22.0-30.0); Creatinine Clearance Estimated 59 mL/min (50-200); Estimated Glomerular Filt Rate 109 ml/min (>60); GFR (African American) 132 ML/MIN (>60); Glucose 88 mg/dl (74-100)
[2020-07-28 06:14] LABS: POC Glucose,Bedside 80 (70-110)
--- NOTE | 2020-07-28 09:22 | HMH.ACPN2 ---
Internal Medicine - PN: Subj *Date: 07/28/20 *Time: 12:46 Interval history: 80 YOM sitting up in bed, no resp distress noted. Oxygen sturation 97% on 2L per NC. Sputum CX w/ ESBL E-Coli Pulmonology has seen and Rec: Plan: -Aspiration precautions, follow with barium swallow -Change cefepime to meropenem to cover ESBL E. coli -continue meropenem for a total of 7 days starting today -Continue azithromycin for a total of 5 days -Discontinue vancomycin - F/U nasal MRSA PCR -DuoNebs q.8 hrs scheduled along with every 6 schedule for shortness of breath or wheezing -Work-up for possible interstitial lung disease as an outpatient Exam Vital signs and Labs for Last 24 Hours: Temp Pulse Resp BP Pulse Ox 98.1 F 84 18 133/74 97 07/28/20 07:39 07/28/20 07:39 07/28/20 08:00 07/28/20 07:39 07/28/20 08:00 Laboratory Results - last 24 hr 07/27/20 11:13: POC Glucose 81 07/27/20 16:13: POC Glucose 129 H 07/27/20 20:33: POC Glucose 106 07/28/20 05:25: WBC 11.4 H, RBC 3.71 L, Hgb 10.6 L, Hct 31.9 L, MCV 86.0, MCH 28.6, MCHC 33.2, RDW 14.4, Plt Count 339, MPV 8.1, Neut % (Auto) 81.1 H, Lymph % (Auto) 11.5, [place] % (Auto) 5.2, Eos % (Auto) 2.0, Baso % (Auto) 0.3, Neut # (Auto) 9.3 H, Lymph # (Auto) 1.3, [place] # (Auto) 0.6, Eos # (Auto) 0.2, Baso # (Auto) 0.0 07/28/20 05:25: Sodium 142, Potassium 3.8, Chloride 106, Carbon Dioxide 28, Anion Gap 11.8, BUN 15 D, Creatinine 0.70, Estimated Creat Clear 59, Estimated GFR 109, Est GFR ( Amer) 132, Glucose 88, Calcium 8.6 07/28/20 06:02: POC Glucose 80 I & O for Last 24 hours: Intake & Output 07/25/20 07/26/20 07/27/20 07/28/20 23:59 23:59 23:59 23:59 Intake Total 498 / 498 2426 / 2426 Output Total 2450 / 2450 700 / 700 Balance 498 / 498 -24 / -24 -700 / -700 Weight 155 lb 151 lb 9.6 oz 149 lb 14.629 oz 150 lb 5 oz Microbiology Reports for the Last 24 Hours: Microbiology 07/26/20 00:01 Sputum - Expectorated Sputum Gram Stain - Final 07/26/20 00:01 Sputum - Expectorated Sputum Sputum Culture - Preliminary Escherichia coli 07/25/20 19:44 Blood Blood Culture - Preliminary NO GROWTH AFTER 48 HOURS 07/25/20 19:44 Blood Blood Culture - Preliminary NO GROWTH AFTER 48 HOURS - Constitutional no acute distress, chronically ill appearing - *Routine HEENT Exam Head: Present: normocephalic ENT: Present: mucous membranes dry - *Routine Neck Exam Present: trachea midline. Absent: JVD, tracheal deviation - *Routine Respiratory Exam Present: rhonchi - *Routine Cardiovascular Exam Present: RRR - *Routine Abdominal Exam Present: soft, normoactive bowel sounds. Absent: tenderness, firm - *Routine Extremities Exam Present: pulses intact. Absent: edema, calf tenderness - *Routine Skin Exam Present: intact, warm. Absent: jaundice - *Routine Neurological Exam Present: altered mental status - Routine Psychiatric Exam Present: unable to assess Assessment and Plan (1) CAP (community acquired pneumonia) Status: Acute Qualifiers: Laterality: left Lung location: lower lobe of lung Qualified Code(s): J18.9 - Pneumonia, unspecified organism Category: Medical Code(s): J18.9 - Pneumonia, unspecified organism (2) SIRS (systemic inflammatory response syndrome) Status: Acute Category: Medical Code(s): R65.10 - Systemic inflammatory response syndrome (SIRS) of non-infectious origin without acute organ dysfunction (3) Renal insufficiency Status: Acute Category: Medical Code(s): N28.9 - Disorder of kidney and ureter, unspecified (4) Pulmonary fibrosis Status: Chronic Category: Medical Code(s): J84.10 - Pulmonary fibrosis, unspecified (5) Hypomagnesemia Status: Acute Category: Medical Code(s): E83.42 - Hypomagnesemia (6) Type 2 diabetes mellitus without complication Status: Chronic Qualifiers: [place]
--- NOTE | 2020-07-28 09:58 | HMH.PULMPN ---
Internal Medicine - PN: Subj *Date: 07/28/20 *Time: 09:58 Interval history: No acute respiratory events overnight Exam - Constitutional Constitutional:: no acute distress - HENMT Exam HENMT: normocephalic, atraumatic - Eye Exam Eyes:: normal appearance both eyes and related structures - Neck Exam Neck:: thyroid normal, no lymphadenopathy - Respiratory Exam Comments: Bilateral coarse breath sounds especially in the lower lobes - Cardiovascular Exam Cardiac:: S1, S2 - GI Exam GI:: soft, no hepatosplenomegaly - Neurological Exam Neurological: alert, awake - Extremities Exam Extremities: no cyanosis, no clubbing, no edema - Psychiatric Exam Psychiatric: normal affect Assessment and Plan (1) CAP (community acquired pneumonia) Status: Acute Qualifiers: Laterality: left Lung location: lower lobe of lung Qualified Code(s): J18.9 - Pneumonia, unspecified organism Category: Medical Code(s): J18.9 - Pneumonia, unspecified organism (2) SIRS (systemic inflammatory response syndrome) Status: Acute Category: Medical Code(s): R65.10 - Systemic inflammatory response syndrome (SIRS) of non-infectious origin without acute organ dysfunction (3) Renal insufficiency Status: Acute Category: Medical Code(s): N28.9 - Disorder of kidney and ureter, unspecified (4) Pulmonary fibrosis Status: Chronic Category: Medical Code(s): J84.10 - Pulmonary fibrosis, unspecified (5) Hypomagnesemia Status: Acute Category: Medical Code(s): E83.42 - Hypomagnesemia (6) Type 2 diabetes mellitus without complication Status: Chronic Qualifiers: Diabetes mellitus fci insulin use: unspecified fci insulin use status Qualified Code(s): E11.9 - Type 2 diabetes mellitus without complications Category: Medical Code(s): E11.9 - Type 2 diabetes mellitus without complications (7) Dysphagia Status: Chronic Qualifiers: Dysphagia type: unspecified Qualified Code(s): R13.10 - Dysphagia, unspecified Category: Medical Code(s): R13.10 - Dysphagia, unspecified - Assessment and plan all Dx Assessment and Plan for all problems:: #Healthcare associated pneumonia: #Aspiration pneumonia 80-year-old senior living male previous smoker, using nebulization treatments every night, not on any oxygen ecently hospitalized and stayed for more than 2 days as per the patient presented to the hospital decreased p.o. intake and CT chest showed bilateral lower lobe pulmonary infiltrates consistent with aspiration pneumonia. Renal function stable. COVID-19 serology and PCR negative. Blood cultures pending. Patient was initially started on levofloxacin clindamycin however concern for healthcare acid pneumonia escalated to vancomycin and cefepime along with azithromycin, sputum cultures eventually grew ESBL E. coli and his cefepime was changed to meropenem Interval update: Sputum culture grew ESBL E. coli, antibiotics changed from cefepime to meropenem. No acute respiratory distress overnight. Patient does not appear to be in respiratory distress, bilateral coarse breath sounds on the lower lobes. Awaiting barium swallow evaluation Plan: -Aspiration precautions, follow with barium swallow -Change cefepime to meropenem to cover ESBL E. coli -continue meropenem for a total of 7 days starting today -Continue azithromycin for a total of 5 days -Discontinue vancomycin - F/U nasal MRSA PCR -DuoNebs q.8 hrs scheduled along with every 6 schedule for shortness of breath or wheezing -Work-up for possible interstitial lung disease as an outpatient #Thank you for involving pulmonary in this patient care. We will continue to follow.
[2020-07-28 10:36] LABS: POC Glucose,Bedside 86 (70-110)
--- NOTE | 2020-07-28 15:05 | HMH.SLMBS2 ---
Speech & Language Evaluation Speech/Language Mod Barium Swallow Start: 07/28/20 09:20 Freq: ONCE Status: Complete Protocol: Document 07/28/20 14:28 BLANCO (Rec: 07/28/20 15:05 BLANCO [id number]) General Information General Current Food Consistancy NPO Dentition Good Dentition Oxygen Status Room Air Facial Symmetry Symmetrical Patient Orientation Person,Place,Time Ability to Follow Directions Excellent Communication Ability Mild Impairment MBS Recommendations Diet Dietary Recommendations NPO Referrals/Other Recommended Referrals Alternate Feeding Method Mod Barium Swallow Impressions Summary and Impressions Oral Phase Impression No Impairment (WFL) Oral Phase Summary Mr. Gomez was given the following consistencies: thins via straw and open cup, nectar via straw and open cup, honey via spoon, straw, and open cup, pudding, and pureed. Pharyngeal Phase Impression Severe Impairment Pharyngeal Phase Summary Mr. Gomez exhibited the following signs of dysphagia: penetration to the vocal folds with all consistencies with aspiration of thins, nectar, pudding, and pureed. At this time, it is recommended that Mr. Gomez remain NPO and discuss alternate feeding method with family. He is at high risk for aspirating on all consistencies. Speech/Language MBS Assessment/Goals/Plan Assessment Date of Evaluation: 07/28/20 Evaluation Type Re-Evaluation/Revise POC Assessment/Problems Dysphagia Does Patient Qualify for Service No Qualify/Failure Comment Mr. Gomez is unable to follow basic directions at this time on command. Recommendations PHYSICIAN CERTIFICATION: The specified therapy services are required, authorized, and reviewed every 30 days. SL Swallow Guidelines High aspiration risk Plan Pt/Guardian verbally ack understanding Yes: RN and CM notified of dx/prognosis/goals G -code Required No Mod Barium Swallow Setup Exam Setup Radiologist Ellis Perez Level of Consciousness Awake,Alert Position (degrees) 90 Mod Barium Swallow-Lat View Textures Lateral View Food Presentation Thin Liquid via Cup,Thin Liquid via Straw,[place] Liquid
[2020-07-28 16:58] LABS: POC Glucose,Bedside 66 (70-110)
--- NOTE | 2020-07-28 17:48 | PC.NURSE ---
Currently resting in bed. Has been weaned of O2 this shift, w/ no s/s of resp distress. Lung sounds remain coarse w/ ronchi throughout. Pt has been suctioned as well as Q2h oral care performed. Pt does have an occasional cough, sputum is thick and white/yellow in color. Placed in contact precautions for sputum culture being ESBL positive. Abdomen soft, non-tender w/ active BS in all quads, no BM this shift. Pt has a stage II ulcer to coccyx, area cleaned pat dry and dressing changed this shift. Received bed bath and linen change this shift. Pt is a total care and requires turning and repositioning Q2H. Safety in place for pt safety. Call susana w/in reach.
--- NOTE | 2020-07-28 20:50 | PC.NURSE ---
Spoke with MD Leary about pt NPO status and PO medication. Change PO Protonix 40 mg to IV. Hold other medication tonight.
[2020-07-28 21:03] LABS: POC Glucose,Bedside 85 (70-110)
[2020-07-29] VITALS (23 sets, daily range): BP systolic 125–167; BP diastolic 60–98; PULSE 60–93; RESP 14–24; TEMP 36.5–37; O2SAT 93–98; BMI 21.7
[2020-07-29 05:55] LABS: POC Glucose,Bedside 84 (70-110)
--- NOTE | 2020-07-29 06:02 | PC.NURSE ---
No acute changes noted. Pt has remained NPO. Oral care provided. He has remained on RA. O2 sats 92-94%. Lungs diminished t/o. Has productive cough. Oral suctioning administered this shift. VSS. NSR to Sinus Tejinder on telemetry. F/C draining to bedside with clear, yellow urine. Medications administered per nov. PO medications held last night per MD. Call light within reach. Safety measures in place. Will continue to monitor.
[2020-07-29 06:12] LABS: Chloride 103 mmol/L (98-107); Potassium 3.4 mmoL/L (3.5-5.1); Sodium 140 mmol/L (136-145)
[2020-07-29 06:14] LABS: Blood Urea Nitrogen 12 mg/dl (9-20)
[2020-07-29 06:15] LABS: Anion Gap 12.4 mEq/L (5-15); Calcium 8.7 mg/dl (8.4-10.2); Carbon Dioxide 28 mmol/L (22.0-30.0); Creatinine Clearance Estimated 59 mL/min (50-200); Estimated Glomerular Filt Rate 93 ml/min (>60); GFR (African American) 113 ML/MIN (>60); Glucose 90 mg/dl (74-100)
[2020-07-29 07:00] LABS: Basophils % 0.4 % (0.1-2.0); Eosinophils # 0.3 K/mm3 (0.0-0.4); Hematocrit 32.8 % (42.0-52.0); Hemoglobin 10.1 g/dL (14.1-18.0); Lymphocytes # 1.3 K/mm3 (0.7-4.5); Lymphocytes % 14.4 % (10-50); Mean Corpuscular HGB Conc 30.7 g/dL (31.8-35.4); Mean Corpuscular Hemoglobin 26.8 pg (27.0-31.2); Mean Corpuscular Volume 87.3 fl (80-94); Mean Platelet Volume 7.7 fl (7.4-10.4); Monocytes # 0.5 K/mm3 (0.1-1.0); Monocytes % 5.6 % (1.7-9.3); Neutrophils % 76.6 % (37.0-80.0); Platelet Count 339 K/mm3 (142-424); Red Blood Count 3.75 M/mm3 (4.60-6.20); Red Cell Distribution Width 13.9 % (11.5-17.5); White Blood Count 9.2 K/mm3 (4.8-10.8)
--- NOTE | 2020-07-29 09:17 | HMH.ACPN2 ---
Internal Medicine - PN: Subj *Date: 07/29/20 *Time: 12:17 Interval history: 80-year-old male patient resting in bed, he is more alert today and is oriented to name and realizes he is in the hospital. He did fail his swallowing eval tomorrow discussed with options of regular diet with hospice versus n.p.o. NG tube. responds that she opts for G-tube placement, and procedure discussed with patient. Consult placed to general surgery for G-tube placement. Sputum culture grew ESBL E. coli, will continue meropenem for 7 days and azithromycin for 5 days. Exam Vital signs and Labs for Last 24 Hours: Temp Pulse Resp BP Pulse Ox 97.7 F 93 H 18 139/71 95 07/29/20 08:00 07/29/20 08:00 07/29/20 08:00 07/29/20 08:00 07/29/20 08:00 Laboratory Results - last 24 hr 07/28/20 10:29: POC Glucose 86 07/28/20 16:51: POC Glucose 66 L 07/28/20 20:50: POC Glucose 85 07/29/20 05:26: POC Glucose 84 07/29/20 05:32: WBC 9.2, RBC 3.75 L, Hgb 10.1 L, Hct 32.8 L, MCV 87.3, MCH 26.8 L, MCHC 30.7 L, RDW 13.9, Plt Count 339, MPV 7.7, Neut % (Auto) 76.6, Lymph % (Auto) 14.4, [place] % (Auto) 5.6, Eos % (Auto) 3.0, Baso % (Auto) 0.4, Neut # (Auto) 7.0, Lymph # (Auto) 1.3, [place] # (Auto) 0.5, Eos # (Auto) 0.3, Baso # (Auto) 0.0 07/29/20 05:32: Sodium 140, Potassium 3.4 L, Chloride 103, Carbon Dioxide 28, Anion Gap 12.4, BUN 12, Creatinine 0.80, Estimated Creat Clear 59, Estimated GFR 93, Est GFR ( Amer) 113, Glucose 90, Calcium 8.7 I & O for Last 24 hours: Intake & Output 07/26/20 07/27/20 07/28/20 07/29/20 23:59 23:59 23:59 23:59 Intake Total 498 / 498 2426 / 2426 890 / 890 0 / 0 Output Total 2450 / 2450 1275 / 1275 300 / 300 Balance 498 / 498 -24 / -24 -385 / -385 -300 / -300 Weight 151 lb 9.6 oz 149 lb 14.629 oz 150 lb 5 oz 152 lb 3 oz Microbiology Reports for the Last 24 Hours: Microbiology 07/26/20 00:01 Sputum - Expectorated Sputum Gram Stain - Final 07/26/20 00:01 Sputum - Expectorated Sputum Sputum Culture - Preliminary Escherichia coli Staphylococcus aureus - Constitutional no acute distress - *Routine HEENT Exam Head: Present: normocephalic ENT: Present: mucous membranes dry - *Routine Neck Exam Present: full ROM, trachea midline. Absent: JVD, tracheal deviation - *Routine Respiratory Exam Present: rhonchi. Absent: accessory muscle use - *Routine Cardiovascular Exam Present: RRR - *Routine Abdominal Exam Present: soft, normoactive bowel sounds. Absent: tenderness, firm - *Routine Extremities Exam Present: full ROM, pulses intact. Absent: edema, calf tenderness - *Routine Skin Exam Present: intact, dry, warm. Absent: cyanosis, jaundice - *Routine Neurological Exam Present: alert. Absent: altered mental status - Routine Psychiatric Exam Present: unable to assess Assessment and Plan (1) CAP (community acquired pneumonia) Status: Acute Qualifiers: Laterality: left Lung location: lower lobe of lung Qualified Code(s): J18.9 - Pneumonia, unspecified organism Category: Medical Code(s): J18.9 - Pneumonia, unspecified organism (2) SIRS (systemic inflammatory response syndrome) Status: Acute Category: Medical Code(s): R65.10 - Systemic inflammatory response syndrome (SIRS) of non-infectious origin without acute organ dysfunction (3) Renal insufficiency Status: Acute Category: Medical Code(s): N28.9 - Disorder of kidney and ureter, unspecified (4) Pulmonary fibrosis Status: Chronic Category: Medical Code(s): J84.10 - Pulmonary fibrosis, unspecified (5) Hypomagnesemia Status: Acute Category: Medical Code(s): E83.42 - Hypomagnesemia (6) Type 2 diabetes mellitus without complication Status: Chronic Qualifiers: Diabetes mellitus chcf insulin use: unspecified parts counterman insulin use status Qualified Code(s): E11.9 - Type 2 diabetes mellitus without complications
--- NOTE | 2020-07-29 10:31 | HMH.PULMPN ---
Internal Medicine - PN: Subj *Date: 07/29/20 *Time: 10:31 Interval history: No acute respiratory events overnight, patient on room air Exam - Constitutional Constitutional:: no acute distress, comfortable - HENMT Exam HENMT: normocephalic, atraumatic - Neck Exam Neck:: thyroid normal, no lymphadenopathy - Respiratory Exam Respiratory:: able to speak in complete sentences, no respiratory distress Comments: Bilateral lower lobe coarse breath sounds - Cardiovascular Exam Cardiac:: S1, S2 - GI Exam GI:: soft, no hepatosplenomegaly - Skin Exam Skin: warm, no rash - Neurological Exam Neurological: alert, awake - Extremities Exam Extremities: no cyanosis, no clubbing, no edema Assessment and Plan (1) CAP (community acquired pneumonia) Status: Acute Qualifiers: Laterality: left Lung location: lower lobe of lung Qualified Code(s): J18.9 - Pneumonia, unspecified organism Category: Medical Code(s): J18.9 - Pneumonia, unspecified organism (2) SIRS (systemic inflammatory response syndrome) Status: Acute Category: Medical Code(s): R65.10 - Systemic inflammatory response syndrome (SIRS) of non-infectious origin without acute organ dysfunction (3) Renal insufficiency Status: Acute Category: Medical Code(s): N28.9 - Disorder of kidney and ureter, unspecified (4) Pulmonary fibrosis Status: Chronic Category: Medical Code(s): J84.10 - Pulmonary fibrosis, unspecified (5) Hypomagnesemia Status: Acute Category: Medical Code(s): E83.42 - Hypomagnesemia (6) Type 2 diabetes mellitus without complication Status: Chronic Qualifiers: Diabetes mellitus bearing ring assembler insulin use: unspecified bearing ring assembler insulin use status Qualified Code(s): E11.9 - Type 2 diabetes mellitus without complications Category: Medical Code(s): E11.9 - Type 2 diabetes mellitus without complications (7) Dysphagia Status: Chronic Qualifiers: Dysphagia type: unspecified Qualified Code(s): R13.10 - Dysphagia, unspecified Category: Medical Code(s): R13.10 - Dysphagia, unspecified (8) CAP (community acquired pneumonia) due to Escherichia coli Start date: 07/25/20 (ESBL) Status: Acute Category: Medical Code(s): J15.5 - Pneumonia due to Escherichia coli - Assessment and plan all Dx Assessment and Plan for all problems:: #Healthcare associated pneumonia: #Aspiration pneumonia 80-year-old fdc male previous smoker, using nebulization treatments every night, not on any oxygen ecently hospitalized and stayed for more than 2 days as per the patient presented to the hospital decreased p.o. intake and CT chest showed bilateral lower lobe pulmonary infiltrates consistent with aspiration pneumonia. Renal function stable. COVID-19 serology and PCR negative. Blood cultures pending. Patient was initially started on levofloxacin clindamycin however concern for healthcare acid pneumonia escalated to vancomycin and cefepime along with azithromycin, sputum cultures eventually grew ESBL E. coli along with MRSA Interval update: Patient respiratory status improved, on room air this morning saturating 96%. Sputum cultures today showed growth of staph aureus resistant to methicillin along with his prior E. coli ESBL. Will initiate vancomycin . Patient failed barium swallow Plan: -Re Start vancomycin to complete a total of 7-day course, sputum cultures from today showing moderate growth of Staph resistant to methicillin -Aspiration precautions, follow with barium swallow -Continue meropenem to cover ESBL E. coli -continue meropenem for a total of 7 days starting today -Continue azithromycin for a total of 5 days - F/U nasal MRSA PCR -DuoNebs q.8 hrs scheduled along with every 6 schedule for shortness of breath or wheezing -Work-up for possible interstitial lung disease as an outpatient #Thank you for involving pulmonary in this patient care. We will continue to follow.
--- NOTE | 2020-07-29 11:07 | HMH.GSCON ---
*Admission Date: 07/26/20 *Reason for consult:: Gastrostomy tube placement *History of present illness: Mr. Gomze is a 80-year-old male previous smoker more than [id number] smoking history currently not smoking and nebulization therapy nocturnally every day not on any home oxygen presented to the hospital with worsening respiratory failure and decreased p.o. intake. Imaging showed bilateral pulmonary infiltrates and pulmonary was called for further management. Patient is a prison patient with dementia. He has pneumonia and urinary tract infection. He had failed swallowing study. Surgery was consulted for gastrostomy tube placement. Of note, patient did have a previous gastrostomy tube in the past. Review of Systems - *Neurologic Reports abnormal hearing, Reports weakness, Denies localized weakness, Denies headache(s), Denies seizure-like activity [facility] History Medical History: Reports:: BPH, Diabetes Mellitus Type 2, Hypertension, Seizures Denies:: Cancer, Diabetes Mellitus Type 1, Internal Pacemaker, MRSA *Have you ever received a pneumonia vaccine?: No *Have you received a flu vaccine this season?: No Other Medical History: Reports: Other Other Surgeries: No: Pacemaker Amputation: No Fractures: Yes - *Social History Smoking Status: Never smoker Alcohol Intake: never *Occupational Status:: retired Housing: prison Household Members: other *Travel in the last 8 weeks: None Family Hx:: Unable to obtain [facility] Home Medications Medication Instructions Recorded Confirmed Type bisacodyl 5 mg tablet 10 mg PO BID 09/03/19 07/26/20 History cholecalciferol (vitamin D3) 100 5,000 unit PO DAILY 09/03/19 07/26/20 History mcg (4,000 unit) capsule ibuprofen 600 mg tablet 600 mg PO Q6HP PRN 09/03/19 07/26/20 History lisinopril 10 mg tablet 10 mg PO DAILY 09/03/19 07/26/20 History ondansetron HCl 4 mg tablet 4 mg PO Q8HP PRN 09/03/19 07/26/20 History sennosides 8.6 mg-docusate sodium 1 tab PO BID 09/03/19 07/26/20 History 50 mg tablet tamsulosin 0.4 mg capsule 0.4 mg PO DAILY 09/03/19 07/26/20 History metformin 500 mg tablet 500 mg PO BID 11/04/19 07/26/20 History ARIPiprazole [Abilify 10mg 10 mg PO HS 07/25/20 07/26/20 History Tablet] Aspirin [Aspirin 81mg chewable 81 mg PO DAILY 07/25/20 07/26/20 History tab] Donepezil HCl [Aricept 5mg 10 mg PO HS 07/25/20 07/26/20 History Tablet] Pantoprazole Sodium [Protonix 40mg 40 mg PO DAILY 07/25/20 07/26/20 History tablet] Sertraline HCl [Zoloft] 150 mg PO DAILY 07/25/20 07/26/20 History levETIRAcetam [Levetiracetam] 500 mg PO HS 07/25/20 07/26/20 History Acetaminophen 500 mg PO Q4HP PRN 07/26/20 07/26/20 History Bisacodyl [Bisacodyl 10mg Supp] 10 mg RC Q12HP PRN 07/26/20 07/26/20 History Bismuth Subsalicylate [Bismuth] 2 tab PO Q2HP PRN 07/26/20 07/26/20 History Divalproex Sodium [Depakote 250mg 750 mg PO 1700 07/26/20 07/26/20 History (Delayed-Release) tablet] Melatonin 9 mg PO HS 07/26/20 07/26/20 History Mirtazapine [Remeron 15mg tablet] 15 mg PO HS 07/26/20 07/26/20 History Multivitamin 1 each PO DAILY 07/26/20 07/26/20 History polyethylene glycoL 3350 [Miralax 17 gm PO DAILYP PRN 07/26/20 07/26/20 History 17gm Packet] Divalproex Sodium 500 mg PO DAILY 07/28/20 07/28/20 History Allergies Allergy/AdvReac Type Severity Reaction Status Date / Time Sulfa (Sulfonamide Allergy Verified 05/31/20 13:20 Antibiotics) Exam Vital signs and Labs for Last 24 Hours: Temp Pulse Resp BP Pulse Ox 97.7 F 93 H 24 139/71 95 07/29/20 08:00 07/29/20 08:00 07/29/20 08:00 07/29/20 08:00 07/29/20 08:00 Laboratory Results - last 24 hr 07/28/20 16:51: POC Glucose 66 L 07/28/20 20:50: POC Glucose 85 07/29/20 05:26: POC Glucose 84 07/29/20 05:32: WBC 9.2, RBC 3.75 L, Hgb 10.1 L, Hct 32.8 L, MCV 87.3, MCH 26.8 L, MCHC 30.7 L, RDW 13.9, Plt Count 339, MPV 7.7, Neut % (Auto) 76.6, Lymph % (Auto) 14.4, [place] % (Auto) 5.6,
[2020-07-29 11:08] LABS: POC Glucose,Bedside 98 (70-110)
--- NOTE | 2020-07-29 15:26 | PC.NURSE ---
PT down for surgery @ 6734
--- NOTE | 2020-07-29 16:13 | SUR.OPER ---
PEG PLACEMENT AT 2CM
--- NOTE | 2020-07-29 16:13 | SUR.OPER ---
ABDOMINAL BINDER IN PLACE
--- NOTE | 2020-07-29 16:18 | P.PN_ITS ---
[facility] Anesthesia Checklist - Structural Data Admitted From: Inpatient Planned Operative Procedure/s: peg tube Consent for Planned Operative Procedure(s) Verified: Yes - Airway Assessment C-Spine Mobility Assessed: Yes TMJ Mobility Assessed: Yes Dentition: Poor Dentition - Neurological Assessment Level of Consciousness: Awake, Alert, Inappropriate - Anesthesia Plan Anesthesia Risk discussed: Yes Anesthesia Plan: Verified ASA Class: III Anesthesia Type: MAC [facility] History I have reviewed the patient's past medical history: Yes Medical History: Reports:: BPH, Diabetes Mellitus Type 2, Hypertension, Seizures Denies:: Cancer, Diabetes Mellitus Type 1, Internal Pacemaker, MRSA *Have you ever received a pneumonia vaccine?: No *Have you received a flu vaccine this season?: No Other Medical History: Reports: Other Anesthesia experience/problems:: none Other Surgeries: No: Pacemaker Amputation: No Fractures: Yes - *Social History Smoking Status: Never smoker Alcohol Intake: never Substance Use Type: denies use *Occupational Status:: retired Housing: [facility] Household Members: other *Travel in the last 8 weeks: None Family Hx:: Unable to obtain
--- NOTE | 2020-07-29 16:20 | HMH.SCOPE ---
- Procedure: Date: 07/29/20 Patient Date of :: 1940 Procedure Performed:: Placement of 20 M[place]ese pull-type percutaneous endoscopic gastrostomy tube Indications:: Feeding problem Performing Provider:: Clarence Jeffery MD Referring Provider:: Jhonatan Cowan MD Sedation:: MAC sedation Procedure:: MAC sedation patient was taken to endoscopy procedure room. He was maintained in a supine position. Adequate intravenous sedation was achieved with anesthesia titration of propofol. Olympus endoscope was inserted via the oropharynx advanced to the esophagus. Limited esophagogastroscopy was performed. Stomach was insufflated. There was good light reflex medial and superior to the previous gastrostomy scar. The abdomen was prepped and draped in the standard surgical fashion. Local anesthetic was infiltrated. Small incision was made. Disposable loop snare was inserted through the endoscope. Needle with catheter was inserted through the incision and the gastric lumen was cannulated. Loop guidewire was inserted through the catheter. Loop guidewire was grasped with the snare. Endoscope with the loop guidewire was withdrawn. Loop wire was then secured to the pull-type PEG tube. This was then pulled through the esophagus to exit the abdomen at the insertion site. Initially it was rather difficult but with slight increase in the size of incision PEG tube was pulled through the anterior abdominal wall. Completion endoscopy revealed good placement with no evidence of any immediately apparent complications. PEG tube bumper was attached after antibiotic ointment was applied. PEG tube was cut to the appropriate length and the infusion apparatus connection was attached. It was secured at approximately the 2 cm doc. Findings:: Unremarkable Recommendations:: Would hold on starting any PEG tube feeds for approximately 24 hours. Complications:: None immediately apparent Estimated blood obtained (mL): 10
--- NOTE | 2020-07-29 16:23 | DIET.NUTRFU ---
Pt to have Gtube placed tonight. Upon MD's order recommend starting pt on slow and low TF regimen of diabetic formula available at [facility], glucerna 1.0. Will monitor tolerance and adjust as indicated for dc. Upon MD's order, recommend initiating bolus feedings of glucerna 1.0 of 237ml/8oz q 4 hours. This will provide pt with 1422kcal, 59g protein, and 1212ml free water. Additional fluid needs are being met through IVF, recommend minimal water flushes, will monitor and adjust as needed.
--- NOTE | 2020-07-29 17:51 | PC.NURSE ---
Pt returned from surgery @ 1715. Is alert to self only. Remains on room air w/ no s/s of resp distress. Occasional productive cough noted. Remains in contact precautions for MRSA and e. Coli positive sputum culture. Lungs diminished in bilat lower lobes. Abdomen soft, tender w/ palpation d/t surgical placement of PEG tube today. Active BS in all quads. No BM this shift. Mike cath to drain at bedside w/ clear yellow urine noted. Oral care and suctioning performed Q2H this shift. Pt is total care and requires turning and repositioning Q2H by nursing staff. Pt denies pain. Peg tube @ 2 cm post op, 4x4 w/ small amount of serosang drainage, abd binder in place to prevent pt from pulling tube. Call meza w/in reach. Bed safety in place.
[2020-07-29 18:26] LABS: POC Glucose,Bedside 82 (70-110)
--- NOTE | 2020-07-29 19:16 | PC.NURSE ---
report given to gildardo
[2020-07-30] VITALS (8 sets, daily range): BP systolic 123–168; BP diastolic 65–88; PULSE 60–86; RESP 18–22; TEMP 36.4–37.1; O2SAT 92–98; BMI 21.2
--- NOTE | 2020-07-30 02:01 | PC.NURSE ---
Late Entry: Near the beginning of this shift, Lab attempted to obtain pt's Vanc trough, although pt was yelling, cursing, attempting to hit staff with hands, and stating I don't want any of you people touching me . A second system dispatcher came to pt's room to attempt to collect lab. Pt continued to be belligerent and was actively trying to bite staff when they were near him. Pt has in the past been only oriented to self. When asked pt to verify name, pt shouted My name is Jonathon Harrington and that all you are ever going to get out of me. Leave me alone or I'll bite each and every one of you! Attempted to console pt and calm him down, explained reason the lab was necessary. Pt continued to yell and began swinging his arms at staff. Dr. Cowan notified in the ER that Vancomycin trough was unable to be collected.
--- NOTE | 2020-07-30 05:11 | PC.NURSE ---
Pt is A&O to person, althogh has stated 1x that his name was Jonathon Harrington . Pt has denied any pain, nausea, SOA, or dyspnea t/o shift. Rhonchi noted to UPper lobes and diminished bases. Pt has a productive cough rarely. Pt continued on room air throughout of the shift, however when pt slept SaO2 dropped to 84%, 2LPM NC placed on pt and within moments SaO2 up to 95%. ABD binder in place and pt tolerating it well. PEG tube in place to LUQ, 4x4's surrounding tube and small amount or serousangious drainage noted ABD is soft, non-tender. with hypo active BS. NO BM this shift. Mike cath in place draining dark ylw urine. Pt continues to be NPO. Bed alarm active for safety. NSR on tele. Lips and oral cavity very dry, viscous oral care and mouth moisturizer provided several times this shift. Call light within reach, will continue to monitor.
[2020-07-30 06:32] LABS: POC Glucose,Bedside 105 (70-110)
[2020-07-30 06:36] LABS: Basophils % 0.4 % (0.1-2.0); Eosinophils # 0.3 K/mm3 (0.0-0.4); Eosinophils % 3.3 % (0.1-12.0); Hematocrit 34.6 % (42.0-52.0); Hemoglobin 10.4 g/dL (14.1-18.0); Lymphocytes # 1.5 K/mm3 (0.7-4.5); Lymphocytes % 14.7 % (10-50); Mean Corpuscular HGB Conc 29.9 g/dL (31.8-35.4); Mean Corpuscular Hemoglobin 26.5 pg (27.0-31.2); Mean Corpuscular Volume 88.5 fl (80-94); Mean Platelet Volume 7.6 fl (7.4-10.4); Monocytes # 0.6 K/mm3 (0.1-1.0); Monocytes % 5.7 % (1.7-9.3); Neutrophils # 7.5 K/mm3 (1.8-7.8); Neutrophils % 75.9 % (37.0-80.0); Platelet Count 332 K/mm3 (142-424); Red Blood Count 3.91 M/mm3 (4.60-6.20); Red Cell Distribution Width 13.9 % (11.5-17.5); White Blood Count 9.8 K/mm3 (4.8-10.8)
[2020-07-30 06:41] LABS: Chloride 100 mmol/L (98-107)
[2020-07-30 06:42] LABS: Potassium 3.1 mmoL/L (3.5-5.1); Sodium 139 mmol/L (136-145)
[2020-07-30 06:45] LABS: Anion Gap 13.1 mEq/L (5-15); Blood Urea Nitrogen 8 mg/dl (9-20); Calcium 8.5 mg/dl (8.4-10.2); Carbon Dioxide 29 mmol/L (22.0-30.0); Creatinine Clearance Estimated 58 mL/min (50-200); Estimated Glomerular Filt Rate 93 ml/min (>60); GFR (African American) 113 ML/MIN (>60); Glucose 113 mg/dl (74-100)
--- NOTE | 2020-07-30 07:21 | HMH.GSPN ---
Subjective Narrative: Resting comfortably. Progress Note: A&P (1) CAP (community acquired pneumonia) Status: Acute (2) SIRS (systemic inflammatory response syndrome) Status: Acute (3) Renal insufficiency Status: Acute (4) Pulmonary fibrosis Status: Chronic (5) Hypomagnesemia Status: Acute (6) Type 2 diabetes mellitus without complication Status: Chronic (7) Dysphagia Status: Chronic Assessment and plan: Overall, doing well status post placement of PEG. Tube feeding as per primary service (8) CAP (community acquired pneumonia) due to Escherichia coli Status: Acute Exam Vital signs and Labs for Last 24 Hours: Temp Pulse Resp BP Pulse Ox 98.8 F 81 20 138/76 95 07/30/20 04:00 07/30/20 06:48 07/30/20 04:00 07/30/20 04:00 07/30/20 04:00 Laboratory Results - last 24 hr 07/29/20 11:01: POC Glucose 98 07/29/20 17:29: POC Glucose 82 07/30/20 05:45: WBC 9.8, RBC 3.91 L, Hgb 10.4 L, Hct 34.6 L, MCV 88.5, MCH 26.5 L, MCHC 29.9 L, RDW 13.9, Plt Count 332, MPV 7.6, Neut % (Auto) 75.9, Lymph % (Auto) 14.7, [place] % (Auto) 5.7, Eos % (Auto) 3.3, Baso % (Auto) 0.4, Neut # (Auto) 7.5, Lymph # (Auto) 1.5, [place] # (Auto) 0.6, Eos # (Auto) 0.3, Baso # (Auto) 0.0 07/30/20 05:45: Sodium 139, Potassium 3.1 L, Chloride 100, Carbon Dioxide 29, Anion Gap 13.1, BUN 8 L D, Creatinine 0.80, Estimated Creat Clear 58, Estimated GFR 93, Est GFR ( Amer) 113, Glucose 113 H, Calcium 8.5 07/30/20 05:49: POC Glucose 105 I & O for Last 24 hours: Intake & Output 07/27/20 07/28/20 07/29/20 07/30/20 11:59 11:59 11:59 11:59 Intake Total 0 / 0 2426 / 2426 890 / 890 Output Total 1300 / 1300 1850 / 1850 875 / 875 187 / 187 Balance -1300 / -1300 576 / 576 -1874 / -1874 Weight 149 lb 9 oz 150 lb 5 oz 152 lb 3 oz 148 lb 1 oz Microbiology Reports for the Last 24 Hours: Microbiology 07/26/20 00:01 Sputum - Expectorated Sputum Gram Stain - Final 07/26/20 00:01 Sputum - Expectorated Sputum Sputum Culture - Final Escherichia coli Staphylococcus aureus - Constitutional no acute distress - *Routine Respiratory Exam Absent: respiratory distress - *Routine Cardiovascular Exam Comments: reg rate - *Routine Abdominal Exam Comments: PEG in place with no sign of cellulitis or active bleeding
--- NOTE | 2020-07-30 10:24 | HMH.ACPN ---
Internal Medicine - PN: Subj *Date: 07/30/20 *Time: 10:24 Exam Vital signs and Labs for Last 24 Hours: Temp Pulse Resp BP Pulse Ox 98.2 F 83 22 165/86 H 92 L 07/30/20 08:00 07/30/20 08:00 07/30/20 08:00 07/30/20 08:00 07/30/20 08:00 Laboratory Results - last 24 hr 07/29/20 11:01: POC Glucose 98 07/29/20 17:29: POC Glucose 82 07/30/20 05:45: WBC 9.8, RBC 3.91 L, Hgb 10.4 L, Hct 34.6 L, MCV 88.5, MCH 26.5 L, MCHC 29.9 L, RDW 13.9, Plt Count 332, MPV 7.6, Neut % (Auto) 75.9, Lymph % (Auto) 14.7, [place] % (Auto) 5.7, Eos % (Auto) 3.3, Baso % (Auto) 0.4, Neut # (Auto) 7.5, Lymph # (Auto) 1.5, [place] # (Auto) 0.6, Eos # (Auto) 0.3, Baso # (Auto) 0.0 07/30/20 05:45: Sodium 139, Potassium 3.1 L, Chloride 100, Carbon Dioxide 29, Anion Gap 13.1, BUN 8 L D, Creatinine 0.80, Estimated Creat Clear 58, Estimated GFR 93, Est GFR ( Amer) 113, Glucose 113 H, Calcium 8.5 07/30/20 05:49: POC Glucose 105 I & O for Last 24 hours: Intake & Output 07/27/20 07/28/20 07/29/20 07/30/20 23:59 23:59 23:59 23:59 Intake Total 2426 / 2426 890 / 890 0 / 0 Output Total 2450 / 2450 1275 / 1275 1525 / 1525 650 / 650 Balance -24 / -24 -385 / -385 -1525 / -1525 -650 / -650 Weight 68 kg 68.181 kg 69.031 kg 67.16 kg Microbiology Reports for the Last 24 Hours: Microbiology 07/26/20 00:01 Sputum - Expectorated Sputum Gram Stain - Final 07/26/20 00:01 Sputum - Expectorated Sputum Sputum Culture - Final Escherichia coli Staphylococcus aureus Assessment and Plan (1) CAP (community acquired pneumonia) Status: Acute Qualifiers: Laterality: left Lung location: lower lobe of lung Qualified Code(s): J18.9 - Pneumonia, unspecified organism Category: Medical Code(s): J18.9 - Pneumonia, unspecified organism (2) SIRS (systemic inflammatory response syndrome) Status: Acute Category: Medical Code(s): R65.10 - Systemic inflammatory response syndrome (SIRS) of non-infectious origin without acute organ dysfunction (3) Renal insufficiency Status: Acute Category: Medical Code(s): N28.9 - Disorder of kidney and ureter, unspecified (4) Pulmonary fibrosis Status: Chronic Category: Medical Code(s): J84.10 - Pulmonary fibrosis, unspecified (5) Hypomagnesemia Status: Acute Category: Medical Code(s): E83.42 - Hypomagnesemia (6) Type 2 diabetes mellitus without complication Status: Chronic Qualifiers: Diabetes mellitus superintendent container terminal insulin use: unspecified [facility] insulin use status Qualified Code(s): E11.9 - Type 2 diabetes mellitus without complications Category: Medical Code(s): E11.9 - Type 2 diabetes mellitus without complications (7) Dysphagia Status: Chronic Qualifiers: Dysphagia type: unspecified Qualified Code(s): R13.10 - Dysphagia, unspecified Category: Medical Code(s): R13.10 - Dysphagia, unspecified (8) CAP (community acquired pneumonia) due to Escherichia coli Start date: 07/25/20 (ESBL) Status: Acute Category: Medical Code(s): J15.5 - Pneumonia due to Escherichia coli The patient's infection will respond to the chosen ABx?: Yes Is the patient receiving the right drug, dose, and route?: Yes Could a more targeted ABx be ordered?: No
[2020-07-30 11:43] LABS: POC Glucose,Bedside 102 (70-110)
--- NOTE | 2020-07-30 11:54 | XR_ITS ---
PROCEDURE: XR CHEST PORTABLE PICC PLAC CLINICAL HISTORY: Confirm PICC line placement COMPARISON: CR XR CHEST PORTABLE from 07/25/[address] CHEST WO CON from 07/26/2020 FINDINGS: Left upper extremity PICC line has been inserted. The PICC line curls at the right brachiocephalic/SVC junction and extends superiorly to the upper brachiocephalic region overlying the medial aspect of the right clavicle. There is increased density in both lower lobes consistent with bilateral pneumonia left more extensive than right. There is normal heart size with degenerative changes of the shoulders. No acute bony abnormalities. IMPRESSION: PICC line tip now positioned as described above. Results were discussed with Samuel the PICC line nurse 07 30 20 at 2:30 p.m. Dictated by: Ellis Perez MD 07/30/2020 14:34 Ellis Perez MD in OV 07/30/2020 14:34
--- NOTE | 2020-07-30 12:40 | HMH.ACPN2 ---
Internal Medicine - PN: Subj *Date: 07/30/20 *Time: 08:10 Interval history: pt laying in bed watching tv. states he is feeling well Exam Vital signs and Labs for Last 24 Hours: Temp Pulse Resp BP Pulse Ox 98.2 F 70 22 165/86 H 92 L 07/30/20 08:00 07/30/20 12:00 07/30/20 08:00 07/30/20 08:00 07/30/20 08:00 Laboratory Results - last 24 hr 07/29/20 17:29: POC Glucose 82 07/30/20 05:45: WBC 9.8, RBC 3.91 L, Hgb 10.4 L, Hct 34.6 L, MCV 88.5, MCH 26.5 L, MCHC 29.9 L, RDW 13.9, Plt Count 332, MPV 7.6, Neut % (Auto) 75.9, Lymph % (Auto) 14.7, [place] % (Auto) 5.7, Eos % (Auto) 3.3, Baso % (Auto) 0.4, Neut # (Auto) 7.5, Lymph # (Auto) 1.5, [place] # (Auto) 0.6, Eos # (Auto) 0.3, Baso # (Auto) 0.0 07/30/20 05:45: Sodium 139, Potassium 3.1 L, Chloride 100, Carbon Dioxide 29, Anion Gap 13.1, BUN 8 L D, Creatinine 0.80, Estimated Creat Clear 58, Estimated GFR 93, Est GFR ( Amer) 113, Glucose 113 H, Calcium 8.5 07/30/20 05:49: POC Glucose 105 07/30/20 11:35: POC Glucose 102 I & O for Last 24 hours: Intake & Output 07/28/20 07/29/20 07/30/20 07/31/20 11:59 11:59 11:59 11:59 Intake Total 2426 / 2426 890 / 890 Output Total 1850 / 1850 875 / 875 1875 / 1875 Balance 576 / 576 -1874 / Weight 150 lb 5 oz 152 lb 3 oz 148 lb 1 oz Microbiology Reports for the Last 24 Hours: Microbiology 07/26/20 00:01 Sputum - Expectorated Sputum Gram Stain - Final 07/26/20 00:01 Sputum - Expectorated Sputum Sputum Culture - Final Escherichia coli Staphylococcus aureus - Constitutional no acute distress - *Routine HEENT Exam Head: Present: normocephalic Eye: Present: PERRL ENT: Present: mucous membranes moist - *Routine Neck Exam Present: supple. Absent: lymphadenopathy - *Routine Respiratory Exam Present: decreased breath sounds, rales, rhonchi - *Routine Cardiovascular Exam Present: RRR - *Routine Abdominal Exam Present: soft, normoactive bowel sounds. Absent: tenderness Comments: tube placement and abd binder in place - *Routine Extremities Exam Present: normal capillary refill. Absent: cyanosis, clubbing, edema - *Routine Skin Exam Present: warm. Absent: rash Comments: dressing to tube placement, abd binder in place - *Routine Neurological Exam Present: alert - Routine Psychiatric Exam Present: normal affect Assessment and Plan (1) CAP (community acquired pneumonia) Status: Acute Qualifiers: Laterality: left Lung location: lower lobe of lung Qualified Code(s): J18.9 - Pneumonia, unspecified organism Category: Medical Code(s): J18.9 - Pneumonia, unspecified organism (2) SIRS (systemic inflammatory response syndrome) Status: Acute Category: Medical Code(s): R65.10 - Systemic inflammatory response syndrome (SIRS) of non-infectious origin without acute organ dysfunction (3) Renal insufficiency Status: Acute Category: Medical Code(s): N28.9 - Disorder of kidney and ureter, unspecified (4) Pulmonary fibrosis Status: Chronic Category: Medical Code(s): J84.10 - Pulmonary fibrosis, unspecified (5) Hypomagnesemia Status: Acute Category: Medical Code(s): E83.42 - Hypomagnesemia (6) Type 2 diabetes mellitus without complication Status: Chronic Qualifiers: Diabetes mellitus intermediate project manager insulin use: unspecified intermediate project manager insulin use status Qualified Code(s): E11.9 - Type 2 diabetes mellitus without complications Category: Medical Code(s): E11.9 - Type 2 diabetes mellitus without complications (7) Dysphagia Status: Chronic Qualifiers: Dysphagia type: unspecified Qualified Code(s): R13.10 - Dysphagia, unspecified Category: Medical Code(s): R13.10 - Dysphagia, unspecified (8) CAP (community acquired pneumonia) due to Escherichia coli Start date: 07/25/20 (ESBL) Status: Acute Category: Medical Code(s): J15.5 - Pneumonia due to Es
--- NOTE | 2020-07-30 14:34 | XR_ITS ---
PROCEDURE: XR CHEST PORTABLE PICC PLAC CLINICAL HISTORY: PICC line placement COMPARISON: CR XR CHEST PORTABLE from 07/25/[address] CHEST WO CON from 07/26/2020 CR XR CHEST PORTABLE PICC PLAC from 07/30/2020 FINDINGS: 1456 hours. The PICC line has been repositioned. The tip is now in good position in the region of the superior vena cava. Mild cardiomegaly with left lower lobe pneumonia. Increased markings are also present in the right lung base consistent with atelectasis or infiltrate. There are degenerative changes of the shoulders. IMPRESSION: PICC line in good position. Bibasilar airspace disease left greater than right Dictated by: Ellis Perez MD 07/30/2020 14:50 Ellis Perez MD in [facility] 07/30/2020 14:50
--- NOTE | 2020-07-30 14:57 | PC.NURSE ---
Left message with dietary inquiring about pts tube feeds; awaiting a call back
--- NOTE | 2020-07-30 15:37 | DIET.NUTRFU ---
Nutrition consult to initiate TF has been received and TF diet order has been entered. Order for pt to receive 237ml(8oz) bolus feedings of Glucerna 1.0 every 4 hours. Will monitor TF toleration and add additional fluid recommendations as needed.
--- NOTE | 2020-07-30 16:00 | PC.NURSE ---
Just received notice from dr Jeffery that it is ok to initiate tube feed
[2020-07-30 16:08] LABS: POC Glucose,Bedside 101 (70-110)
--- NOTE | 2020-07-30 16:14 | PC.NURSE ---
Pt is alert to self. Rhonchi noted to lungs. Intermittent non productive cough noted. He remains on RA with O2 sats in the 90's. He's been NSR on telemetry. Peg tube in place and flushes easily. Butterfly dressing to coccyx is C,D, & I. He is a left limb alert. Picc to LUE is patent and flushes easily. It is OK to use per radiology. 8cm exposed and dressing to be changed tomorrow. Mike is to bedside draining kal[place] colored urine. No BM today. Home Health Clinical Supervisor notified to initiate tube feeds. Report given to Wilmer Harrington RN
--- NOTE | 2020-07-30 19:14 | PC.NURSE ---
report given to gildardo
--- NOTE | 2020-07-30 19:19 | PC.NURSE ---
Tube feed given per order at 1700, 60 ml flush given and pt tolerated well with zero residual.
[2020-07-31] VITALS: BP 150/61; PULSE 87; RESP 20; TEMP 37.3; O2SAT 93
[2020-07-31 00:10] LABS: POC Glucose,Bedside 147 (70-110)
--- NOTE | 2020-07-31 03:57 | PC.NURSE ---
Pt is A&O self and city. Pt has denied any pain. Pt has rested well thus far. TF has been tolerated well, GRV 5ml at 2200 and 0ml at 0200. Pt's HOB has been kept >30 degrees. Fine crackles and rhonchi noted on lung auscultation and pt continues on room air. IS was encouraged with pt, although he refused to attempt, pt stated No, I don't want anymore oatmeal, get that away from me! . Will encourage and attempt again when pt is awake. ABD is soft, flat, and hypoactive BS noted. PEG tube in place to Mid-LUQ and is patent. No redness or bleeding noted surrounding site. 4x4 gauze surrounding tube have small amount of dried serousanginueos d/c. Stage 2 to coccyx, not visualized d/t dressing in place. Some small bruises noted on BUE. Bed alarm in use for safety. PICC in place to LUE, infusing well with good blood return. Peripheral IV to RFA. Call Light within reach, report given to Shira Tristan RN
[2020-07-31 04:00] VITALS: BP 124/62; PULSE 88; RESP 18; TEMP 36.8; O2SAT 94
[2020-07-31 05:00] VITALS: BMI 21.4
[2020-07-31 06:05] VITALS: PULSE 82; O2SAT 89
[2020-07-31 06:07] LABS: POC Glucose,Bedside 145 (70-110)
[2020-07-31 06:35] LABS: Basophils % 0.4 % (0.1-2.0); Eosinophils # 0.4 K/mm3 (0.0-0.4); Eosinophils % 4.4 % (0.1-12.0); Hematocrit 31.1 % (42.0-52.0); Hemoglobin 9.8 g/dL (14.1-18.0); Lymphocytes # 1.6 K/mm3 (0.7-4.5); Lymphocytes % 16.3 % (10-50); Mean Corpuscular HGB Conc 31.6 g/dL (31.8-35.4); Mean Corpuscular Hemoglobin 27.3 pg (27.0-31.2); Mean Corpuscular Volume 86.5 fl (80-94); Mean Platelet Volume 6.9 fl (7.4-10.4); Monocytes # 0.6 K/mm3 (0.1-1.0); Monocytes % 5.6 % (1.7-9.3); Neutrophils # 7.4 K/mm3 (1.8-7.8); Neutrophils % 73.3 % (37.0-80.0); Platelet Count 299 K/mm3 (142-424); Red Blood Count 3.59 M/mm3 (4.60-6.20); Red Cell Distribution Width 14.6 % (11.5-17.5)
[2020-07-31 06:36] LABS: Chloride 100 mmol/L (98-107); Potassium 3.2 mmoL/L (3.5-5.1); Sodium 137 mmol/L (136-145)
[2020-07-31 06:39] LABS: Blood Urea Nitrogen 10 mg/dl (9-20); Creatinine Clearance Estimated 59 mL/min (50-200); Estimated Glomerular Filt Rate 93 ml/min (>60); GFR (African American) 113 ML/MIN (>60)
[2020-07-31 06:40] LABS: Anion Gap 9.2 mEq/L (5-15); Carbon Dioxide 31 mmol/L (22.0-30.0); Glucose 162 mg/dl (74-100)
[2020-07-31 08:00] VITALS: BP 138/62; PULSE 74; RESP 20; TEMP 37.2; O2SAT 93
[2020-07-31 10:20] LABS: Adenovirus,PCR Not Detected (NotDetected); Bordetella Pertussis Not Detected (NotDetected); Chlamydophila Pneumoniae, PCR Not Detected (NotDetected); Coronavirus 19, PCR Not Detected (NotDetected); Coronavirus 229E Not Detected (NotDetected); Coronavirus NL63 Not Detected (NotDetected); Coronavirus OC43 Not Detected (NotDetected); Coronovirus HKU1,PCR Not Detected (NotDetected); Human Metapneumovirus Not Detected (NotDetected); Influenza A, PCR Not Detected (NotDetected); Influenza AH1, 2009 Not Detected (NotDetected); Influenza AH1, PCR Not Detected (NotDetected); Influenza AH3,PCR Not Detected (NotDetected); Influenza B, PCR Not Detected (NotDetected); Mycoplasma Pneumoniae, PCR Not Detected (NotDetected); Parainfluenza 1, PCR Not Detected (NotDetected); Parainfluenza 2, PCR Not Detected (NotDetected); Parainfluenza 3, PCR Not Detected (NotDetected); Parainfluenza 4, PCR Not Detected (NotDetected); Respiratory Syncytial Virus Not Detected (NotDetected); Rhinovirus/Enterovirus Not Detected (NotDetected)
--- NOTE | 2020-07-31 10:26 | HMH.DCSUM ---
General - General Admission date:: 07/26/20 Discharge date: 07/31/20 HPI HPI: this pr was sent from [facility] for congestion and altered mental status -from [facility] - pt with dec po intake - no other hx at this time Hospital Course Hospital Course: Laboratory Tests 07/25/20 07/25/20 07/25/20 18:35 18:35 18:35 WBC 20.1 H* RBC 4.35 L Hgb 12.2 L Hct 38.0 L MCV 87.5 MCH 28.1 MCHC 32.1 RDW 14.4 Plt Count 425 H MPV 7.5 Neut % (Auto) 85.7 H Lymph % (Auto) 9.8 L [place] % (Auto) 3.8 Eos % (Auto) 0.4 Baso % (Auto) 0.2 Neut # (Auto) 17.2 H Lymph # (Auto) 2.0 [place] # (Auto) 0.8 Eos # (Auto) 0.1 Baso # (Auto) 0.0 Total Counted 100 Neutrophils % (Manual) 86 H Band Neutrophils % 6.0 Lymphocytes % (Manual) 8 L Platelet Estimate Normal RBC Morphology Normal Specimen Source O2 % ABG pH ABG pCO2 ABG pO2 ABG HCO3 ABG Total CO2 ABG O2 Saturation ABG Base Excess Ellis Test Sodium 142 Potassium 4.4 Chloride 104 Carbon Dioxide 27 Anion Gap 15.4 H BUN 36 H Creatinine 1.80 H Estimated Creat Clear 34 Estimated GFR 37 L Est GFR ( Amer) 44 L Glucose 128 H POC Glucose Lactate Calcium 9.5 Magnesium Total Bilirubin 0.5 Direct Bilirubin 0.3 Conjugated Bilirubin 0.0 Indirect Bilirubin 0.2 Unconjugated Bilirubin 0.3 AST 45 ALT 43 Alkaline Phosphatase 136 H Troponin I Total Protein 8.5 H Albumin 3.9 Procalcitonin 0.288 Urine Color Urine Appearance Urine pH Ur Specific [place] Urine Protein Urine Glucose (UA) Urine Ketones Urine Blood Urine Nitrate Urine Bilirubin Urine Urobilinogen Ur Leukocyte Esterase Urine RBC Ur Squamous Epith Cells Total Valproic Acid SARS-CoV-2 IgG Ab (Rapid) Negative SARS-CoV-2 IgM Ab (Rapid) Negative 07/25/20 07/25/20 07/25/20 18:35 18:35 19:41 WBC RBC Hgb Hct MCV MCH MCHC RDW Plt Count MPV Neut % (Auto) Lymph % (Auto) [place] % (Auto) Eos % (Auto) Baso % (Auto) Neut # (Auto) Lymph # (Auto) [place] # (Auto) Eos # (Auto) Baso # (Auto) Total Counted Neutrophils % (Manual) Band Neutrophils % Lymphocytes % (Manual) Platelet Estimate RBC Morphology Specimen Source O2 % ABG pH ABG pCO2 ABG pO2 ABG HCO3 ABG Total CO2 ABG O2 Saturation ABG Base Excess [place] Test Sodium Potassium Chloride Carbon Dioxide Anion Gap BUN Creatinine Estimated Creat Clear Estimated GFR Est GFR ( Amer) Glucose POC Glucose Lactate Calcium Magnesium Total Bilirubin Direct Bilirubin Conjugated Bilirubin Indirect Bilirubin Unconjugated Bilirubin AST ALT Alkaline Phosphatase Troponin I 0.01 Total Protein Albumin Procalcitonin Urine Color Yellow Urine Appearance Clear Urine pH 6.0 Ur Specific [place] >= 1.030 Urine Protein 2+ Urine Glucose (UA) Negative Urine Ketones Trace Urine Blood 2+ Urine Nitrate Negative Urine Bilirubin Negative Urine Urobilinogen 0.2 Ur Leukocyte Esterase Negative Urine RBC 10-20 Ur Squamous Epith Cells Occasional Total Valproic Acid 59.5 SARS-CoV-2 IgG Ab (Rapid) SARS-CoV-2 IgM Ab (Rapid) 07/25/20 07/25/20 07/26/20 19:44 20:36 01:30 WBC RBC Hgb Hct MCV MCH MCHC RDW Plt Count MPV Neut % (Auto) Lymph % (Auto) [place] % (Auto) Eos % (Auto) Baso % (Auto) Neut # (Auto) Lymph # (Auto) [place] # (Auto) Eos # (Auto) Baso # (Auto) Total Counted Neutrophils % (Manual) Band Neutrophils % Lymphocytes % (Manual) Platelet Estimate RBC Morphology Specimen Source R/r O2 % 3 ABG pH
[2020-07-31 11:13] VITALS: BP 122/68; PULSE 82; RESP 20; TEMP 36.6; O2SAT 94
[2020-07-31 11:28] LABS: POC Glucose,Bedside 160 (70-110)
--- NOTE | 2020-07-31 11:35 | PC.NURSE ---
Picc line dressing changed using sterile technique @ 1000 this AM.
[2020-08-02 17:11] LABS: MRSA DNA PCR Positive
== END 2020-07-31 13:55 | DRG 178 ==
LOC: ER 23:38 → 2ND 07-26 00:02
PROVIDERS: Family Medicine; Internal Medicine Pulmonary Disease; Nurse Practitioner Family; Surgery; Admitting Provider Emergency Medicine; Emergency Provider Emergency Medicine; PCP Emergency Medicine; Visit Provider Emergency Medicine
PROC: 0DH63UZ Insertion of Feeding Device into Stomach, Percutaneous Approach (ICD-10-PCS; CPT 43246; principal; 2020-07-29 13:00)
DX: J69.0 Pneumonitis due to inhalation of food and vomit (principal); R65.10 Systemic inflammatory response syndrome (SIRS) of non-infectious origin without acute organ dysfunction; J15.5 Pneumonia due to Escherichia coli; J15.212 Pneumonia due to Methicillin resistant Staphylococcus aureus; R13.13 Dysphagia, pharyngeal phase; E11.9 Type 2 diabetes mellitus without complications; Z79.84 Long term (current) use of oral hypoglycemic drugs; Z79.82 Long term (current) use of aspirin; Z88.2 Allergy status to sulfonamides; Z79.899 Other long term (current) drug therapy; I10 Essential (primary) hypertension
CPT/HCPCS: 43246; 36415; 36569; 70371; 71045; 71250; 80048; 80076; 80164; 81001; 82803; 82962; 83605; 83735; 84145; 84484; 85007; 85025; 86328; 87040; 87070; 87077; 87186; 87205; 87581; 87633; 87641; 87798; 92610; 92611; 93005; 94640; 94761; 96365; 96366; 96367; 96375; 99282; C1751; J0456; J2185; J3370; U0003